=== PATIENT | male | born 1960 | race Caucasian/White ===

== ENCOUNTER 2020-09-12 23:33 | Inpatient (IN) | payer OTHER ==
[2020-09-13 00:18] VITALS: BMI 24.5
[2020-09-13] MEDS ORDERED: MENTHOL/PHENOL 1 EACH UD MM PRN (00:58)
[2020-09-13] MEDS ORDERED: ACETAMINOPHEN 325 MG TABLET (FP) PO PRN (00:58)
[2020-09-13] MEDS ORDERED: chlordiazePOXIDE HCL 25 MG CAPSULE PO PRN (00:58)
[2020-09-13] MEDS ORDERED: MAGNESIUM HYDROX 2400MG/30ML ORAL SUSPENSION 30 ML CUP PO PRN (00:58)
[2020-09-13] MEDS ORDERED: BISMUTH SUBSALICYLATE 524 MG/30 ML UD PO PRN (00:58)
[2020-09-13] MEDS ORDERED: MAG HYDROX/AL HYDROX/SIMETH 30 ML UNIT-DOSE CUP PO PRN (00:58)
[2020-09-13] MEDS ORDERED: NICOTINE POLACRILEX 2 MG GUM BUC PRN (00:58)
[2020-09-13] MEDS ORDERED: ONDANSETRON *ODT* 4 MG TABLET SL PRN (00:58)
[2020-09-13] MEDS ORDERED: MAGNESIUM CITRATE 300 ML BOTTLE PO PRN (00:58)
[2020-09-13] MEDS ORDERED: IBUPROFEN 400 MG TABLET (FP) PO PRN (00:58)
[2020-09-13] MEDS: IBUPROFEN 600 MG TABLET (FP) PO SCH ×4 (02:24→19:20)
[2020-09-13] MEDS: chlordiazePOXIDE HCL 25 MG CAPSULE PO SCH ×4 (06:10→22:11)
[2020-09-13] MEDS: PRENATAL VITAMINS W/ FOLIC ACID TABLET (FP) PO SCH (10:38)
[2020-09-13] MEDS: NICOTINE 14 MG/24 HOURS TOPICAL PATCH TD SCH (10:39)
[2020-09-13] MEDS: ACETAMINOPHEN 325 MG TABLET (FP) PO PRN (10:39)
[2020-09-13] MEDS ORDERED: COLLOIDAL OATMEAL 1 BAR EACH TP ONE (12:00)
[2020-09-13 12:01] LABS: HEMOGLOBIN 11.5 GM/dL (11.7-16.9); MCH 28.5 pg (25.7-33.7); MCHC 31.8 g/dl (32.0-35.9); MEAN CELL VOLUME 89.5 fl (80-96); MEAN PLT VOLUME 8.4 fl (7.5-11.1); PLATELET COUNT 249 K/MM3 (134-434); RBC 4.03 M/mm3 (4.00-5.60); RDW 20.7 % (11.9-15.9); WHITE BLOOD COUNT 5.8 K/mm3 (4.0-10.0)
[2020-09-13 12:05] LABS: POTASSIUM 3.8 mmol/L (3.5-5.1)
[2020-09-13 12:12] LABS: ALBUMIN 3.6 g/dl (3.4-5.0); BLOOD UREA NITROGEN 32.2 mg/dL (7-18); CALCIUM 9.2 mg/dL (8.5-10.1)
[2020-09-13 12:16] LABS: BILIRUBIN,TOTAL 0.5 mg/dL (0.2-1); TOT PROT 7.2 g/dl (6.4-8.2)
[2020-09-13] MEDS ORDERED: MELATONIN 5 MG TABLETS PO SCH (22:00)
[2020-09-13] MEDS: THIAMINE HCL 100 MG TABLET (FP) PO SCH (22:10)
[2020-09-13] MEDS: SUVOREXANT 10 MG TABLET PO PRN (22:12)
[2020-09-14] MEDS: IBUPROFEN 600 MG TABLET (FP) PO SCH ×4 (01:07→19:46)
[2020-09-14] MEDS: chlordiazePOXIDE HCL 25 MG CAPSULE PO SCH ×4 (06:20→23:01)
[2020-09-14] MEDS: PRENATAL VITAMINS W/ FOLIC ACID TABLET (FP) PO SCH (10:32)
[2020-09-14] MEDS: NICOTINE 14 MG/24 HOURS TOPICAL PATCH TD SCH (10:32)
[2020-09-14] MEDS: CARBAMIDE PEROXIDE 6.5% OTIC 15 ML BOTTLE AU SCH ×2 (13:22→23:01)
[2020-09-14] MEDS: THIAMINE HCL 100 MG TABLET (FP) PO SCH (23:01)
[2020-09-15] MEDS ORDERED: chlordiazePOXIDE HCL 10 MG CAPSULE PO PRN
[2020-09-15] MEDS: chlordiazePOXIDE HCL 10 MG CAPSULE PO SCH ×4 (05:27→22:11)
[2020-09-15] MEDS: IBUPROFEN 600 MG TABLET (FP) PO SCH ×4 (07:13→20:25)
[2020-09-15] MEDS: PRENATAL VITAMINS W/ FOLIC ACID TABLET (FP) PO SCH (10:22)
[2020-09-15] MEDS: CARBAMIDE PEROXIDE 6.5% OTIC 15 ML BOTTLE AU SCH ×2 (10:22→22:11)
[2020-09-15] MEDS: NICOTINE 14 MG/24 HOURS TOPICAL PATCH TD SCH (10:23)
[2020-09-15] MEDS: THIAMINE HCL 100 MG TABLET (FP) PO SCH (22:08)
[2020-09-15] MEDS: SUVOREXANT 10 MG TABLET PO PRN (22:09)
[2020-09-15] MEDS: POLYETHYLENE GLYCOL 3350 119 GM BTL PO SCH ×2 (22:45→23:41)
[2020-09-16] MEDS: METHOCARBAMOL 500 MG TABLET PO PRN ×2 (03:06→14:08)
[2020-09-16] MEDS: chlordiazePOXIDE HCL 10 MG CAPSULE PO SCH ×2 (04:00→18:16)
[2020-09-16] MEDS: PRENATAL VITAMINS W/ FOLIC ACID TABLET (FP) PO SCH (10:47)
[2020-09-16] MEDS: NICOTINE 14 MG/24 HOURS TOPICAL PATCH TD SCH (10:47)
[2020-09-16] MEDS: CARBAMIDE PEROXIDE 6.5% OTIC 15 ML BOTTLE AU SCH ×2 (10:47→21:15)
[2020-09-16] MEDS: ACETAMINOPHEN 325 MG TABLET (FP) PO PRN (14:08)
[2020-09-16] MEDS: THIAMINE HCL 100 MG TABLET (FP) PO SCH (21:14)
[2020-09-16] MEDS: SUVOREXANT 10 MG TABLET PO PRN (21:14)
[2020-09-17 02:13] VITALS: BP 118/68; PULSE 67; TEMP 97.7
[2020-09-17] MEDS ORDERED: chlordiazePOXIDE HCL 10 MG CAPSULE PO ONE (05:00)
== END 2020-09-17 02:47 | disposition left against medical advice (07) | DRG 770 ==
LOC: YASAS 23:33 → Y3N 09-13 01:36
PROVIDERS: ADMIT Allergy & Immunology; ATTEND Allergy & Immunology
PROC: HZ2ZZZZ Detoxification Services for Substance Abuse Treatment (ICD-10-PCS; principal; 2020-09-13)
DX: F10.230 Alcohol dependence with withdrawal, uncomplicated (principal); F14.20 Cocaine dependence, uncomplicated; F17.210 Nicotine dependence, cigarettes, uncomplicated; F19.24 Other psychoactive substance dependence with psychoactive substance-induced mood disorder; F41.9 Anxiety disorder, unspecified; F32.9 Major depressive disorder, single episode, unspecified; G47.00 Insomnia, unspecified; H61.23 Impacted cerumen, bilateral; Z56.0 Unemployment, unspecified; Z59.0 Homelessness
CPT/HCPCS: 36415; 80053; 85027; 86780; 93005; 93010; C9803; U0003

== ENCOUNTER 2020-12-25 18:45 | Inpatient (IN) | payer OTHER ==
[2020-12-25] MEDS ORDERED: MENTHOL/PHENOL 1 EACH UD MM PRN (22:33)
[2020-12-25] MEDS ORDERED: chlordiazePOXIDE HCL 25 MG CAPSULE PO PRN (22:33)
[2020-12-25] MEDS ORDERED: ONDANSETRON *ODT* 4 MG TABLET SL PRN (22:33)
[2020-12-25] MEDS ORDERED: MAG HYDROX/AL HYDROX/SIMETH 30 ML UNIT-DOSE CUP PO PRN (22:33)
[2020-12-25] MEDS ORDERED: MAGNESIUM CITRATE 300 ML BOTTLE PO PRN (22:33)
[2020-12-25] MEDS ORDERED: BISMUTH SUBSALICYLATE 524 MG/30 ML UD PO PRN (22:33)
[2020-12-25] MEDS ORDERED: ACETAMINOPHEN 325 MG TABLET (FP) PO PRN ×2 (22:33)
[2020-12-25] MEDS ORDERED: MAGNESIUM HYDROX 2400MG/30ML ORAL SUSPENSION 30 ML CUP PO PRN (22:33)
[2020-12-25] MEDS ORDERED: cloNIDine HCL 0.1 MG TABLET PO ONE (23:12)
[2020-12-25 23:39] VITALS: BMI 25.7
[2020-12-25] MEDS ORDERED: cloNIDine HCL 0.1 MG TABLET ONE (23:54)
[2020-12-25] MEDS ORDERED: chlordiazePOXIDE HCL 25 MG CAPSULE ONE (23:54)
[2020-12-25] MEDS: chlordiazePOXIDE HCL 25 MG CAPSULE PO SCH (23:57)
[2020-12-26] MEDS: chlordiazePOXIDE HCL 25 MG CAPSULE PO SCH ×4 (05:50→22:15)
[2020-12-26] MEDS ORDERED: hydrOXYzine PAMOATE 25 MG CAPSULE (FP) PO SCH (06:00)
[2020-12-26] MEDS ORDERED: hydrOXYzine PAMOATE 25 MG CAPSULE (FP) PO PRN (09:05)
[2020-12-26 10:02] LABS: CALCIUM 8.5 mg/dL (8.5-10.1)
[2020-12-26 10:03] LABS: ALBUMIN 3.4 g/dl (3.4-5.0); BLOOD UREA NITROGEN 12.6 mg/dL (7-18)
[2020-12-26 10:06] LABS: CREATININE 0.9 mg/dL (0.55-1.3)
[2020-12-26 10:08] LABS: BILIRUBIN,TOTAL 0.7 mg/dL (0.2-1); TOT PROT 6.6 g/dl (6.4-8.2)
[2020-12-26 10:22] LABS: HEMATOCRIT 37.8 % (35.4-49); HEMOGLOBIN 12.6 GM/dL (11.7-16.9); MCHC 33.4 g/dl (32.0-35.9); MEAN CELL VOLUME 95.8 fl (80-96); MEAN PLT VOLUME 7.9 fl (7.5-11.1); PLATELET COUNT 158 K/MM3 (134-434); RBC 3.94 M/mm3 (4.00-5.60); RDW 17.7 % (11.9-15.9); WHITE BLOOD COUNT 5.3 K/mm3 (4.0-10.0)
[2020-12-26] MEDS: PRENATAL VITAMINS W/ FOLIC ACID TABLET (FP) PO SCH (10:24)
[2020-12-26] MEDS: LISINOPRIL 10 MG TABLET PO SCH (10:24)
[2020-12-26] MEDS: HYDROCHLOROTHIAZIDE 12.5 MG CAPSULE (FP) PO SCH (10:24)
[2020-12-26 13:18] LABS: HIV INTERPRETATION NEGATIVE (NEGATIVE)
[2020-12-26] MEDS ORDERED: COLLOIDAL OATMEAL 1 BAR EACH TP PRN (13:55)
[2020-12-26] MEDS: IBUPROFEN 400 MG TABLET (FP) PO PRN (16:49)
[2020-12-26] MEDS: METHOCARBAMOL 500 MG TABLET PO PRN (16:49)
[2020-12-26] MEDS: THIAMINE HCL 100 MG TABLET (FP) PO SCH (22:15)
[2020-12-26] MEDS: MELATONIN 5 MG TABLETS PO SCH (22:15)
[2020-12-27] MEDS: chlordiazePOXIDE HCL 25 MG CAPSULE PO SCH ×4 (05:18→22:08)
[2020-12-27] MEDS: METHOCARBAMOL 500 MG TABLET PO PRN ×2 (05:20→17:14)
[2020-12-27] MEDS: IBUPROFEN 400 MG TABLET (FP) PO PRN (05:20)
[2020-12-27] MEDS: LISINOPRIL 10 MG TABLET PO SCH (10:02)
[2020-12-27] MEDS: HYDROCHLOROTHIAZIDE 12.5 MG CAPSULE (FP) PO SCH (10:02)
[2020-12-27] MEDS: PRENATAL VITAMINS W/ FOLIC ACID TABLET (FP) PO SCH (10:02)
[2020-12-27] MEDS: THIAMINE HCL 100 MG TABLET (FP) PO SCH (22:08)
[2020-12-27] MEDS: MELATONIN 5 MG TABLETS PO SCH (22:08)
[2020-12-28] MEDS ORDERED: chlordiazePOXIDE HCL 10 MG CAPSULE PO PRN
[2020-12-28] MEDS: IBUPROFEN 400 MG TABLET (FP) PO PRN (05:34)
[2020-12-28] MEDS: chlordiazePOXIDE HCL 10 MG CAPSULE PO SCH ×3 (05:36→17:40)
[2020-12-28 06:07] LABS: SARS-CoV-2 NAA Not Detected (Not Detected)
[2020-12-28] MEDS: HYDROCHLOROTHIAZIDE 12.5 MG CAPSULE (FP) PO SCH (10:55)
[2020-12-28] MEDS: PRENATAL VITAMINS W/ FOLIC ACID TABLET (FP) PO SCH (10:55)
[2020-12-28] MEDS: LISINOPRIL 10 MG TABLET PO SCH (10:55)
[2020-12-28] MEDS: METHOCARBAMOL 500 MG TABLET PO PRN (10:55)
[2020-12-28] MEDS ORDERED: IBUPROFEN 400 MG TABLET (FP) PO PRN (10:59)
[2020-12-28 17:29] VITALS: BP 149/82; PULSE 65; TEMP 96.9
[2020-12-29] MEDS ORDERED: chlordiazePOXIDE HCL 10 MG CAPSULE PO SCH (05:00)
[2020-12-30] MEDS ORDERED: chlordiazePOXIDE HCL 10 MG CAPSULE PO ONE (05:00)
== END 2020-12-28 19:27 | disposition left against medical advice (07) | DRG 770 ==
LOC: YASAS 18:45 → Y3N 23:18
PROVIDERS: ADMIT Allergy & Immunology; ATTEND Allergy & Immunology
PROC: HZ2ZZZZ Detoxification Services for Substance Abuse Treatment (ICD-10-PCS; principal; 2020-12-25)
DX: F10.230 Alcohol dependence with withdrawal, uncomplicated (principal); F14.20 Cocaine dependence, uncomplicated; F17.210 Nicotine dependence, cigarettes, uncomplicated; F19.24 Other psychoactive substance dependence with psychoactive substance-induced mood disorder; F41.9 Anxiety disorder, unspecified; F32.9 Major depressive disorder, single episode, unspecified; I10 Essential (primary) hypertension; M54.5 Low back pain; Z56.0 Unemployment, unspecified; Z59.0 Homelessness
CPT/HCPCS: 36415; 80053; 85027; 86780; 87389; 93005; 93010; C9803; J0735; U0003; U0005

== ENCOUNTER 2021-02-12 19:28 | Emergency (ER) | payer OTHER ==
[2021-02-12 19:46] VITALS: BP 119/68; PULSE 84; TEMP 98.8; BMI 30.5
[2021-02-12] MEDS ORDERED: KETOROLAC TROMETHAMINE 15 MG/ML VIAL ONE (20:19)
[2021-02-12] MEDS: KETOROLAC TROMETHAMINE 30 MG/1 ML VIAL IM ONE ×2 (20:26→20:27)
== END 2021-02-12 20:30 | disposition left against medical advice (07) ==
LOC: JER 19:28
DX: R07.81 Pleurodynia (principal)
CPT/HCPCS: 99281-25

== ENCOUNTER 2021-02-13 12:09 | Inpatient (IN) | payer OTHER ==
[2021-02-13 12:43] VITALS: BMI 25.2
[2021-02-13] MEDS ORDERED: MAG HYDROX/AL HYDROX/SIMETH 30 ML UNIT-DOSE CUP PO PRN (13:17)
[2021-02-13] MEDS ORDERED: ACETAMINOPHEN 325 MG TABLET (FP) PO PRN ×2 (13:17)
[2021-02-13] MEDS ORDERED: BISMUTH SUBSALICYLATE 524 MG/30 ML PO PRN (13:17)
[2021-02-13] MEDS ORDERED: MENTHOL/PHENOL 1 EACH UD MM PRN (13:17)
[2021-02-13] MEDS ORDERED: NICOTINE POLACRILEX 2 MG GUM BUC PRN (13:17)
[2021-02-13] MEDS ORDERED: ONDANSETRON *ODT* 4 MG TABLET SL PRN (13:17)
[2021-02-13] MEDS ORDERED: LORazepam 1 MG TABLET PO PRN (13:17)
[2021-02-13] MEDS ORDERED: MAGNESIUM HYDROX 2400MG/30ML ORAL SUSPENSION 30 ML CUP PO PRN (13:17)
[2021-02-13] MEDS ORDERED: MAGNESIUM CITRATE 300 ML BOTTLE PO PRN (13:17)
[2021-02-13] MEDS ORDERED: COLLOIDAL OATMEAL 1 BAR EACH TP PRN (13:20)
[2021-02-13] MEDS: NICOTINE 14 MG/24 HOURS TOPICAL PATCH TD SCH (13:58)
[2021-02-13] MEDS: hydrOXYzine PAMOATE 25 MG CAPSULE (FP) PO SCH ×3 (14:00→22:30)
[2021-02-13] MEDS: PRENATAL VITAMINS W/ FOLIC ACID TABLET (FP) PO SCH (14:00)
[2021-02-13 16:04] LABS: HEMATOCRIT 37.4 % (35.4-49); HEMOGLOBIN 12.2 GM/dL (11.7-16.9); MCH 31.4 pg (25.7-33.7); MCHC 32.7 g/dl (32.0-35.9); MEAN PLT VOLUME 7.6 fl (7.5-11.1); PLATELET COUNT 192 10^3/uL (134-434); RDW 17.4 % (11.9-15.9); WHITE BLOOD COUNT 6.2 K/mm3 (4.0-10.0)
[2021-02-13 16:07] LABS: BLOOD UREA NITROGEN 17.6 mg/dL (7-18); CALCIUM 8.3 mg/dL (8.5-10.1)
[2021-02-13 16:08] LABS: ALBUMIN 3.6 g/dl (3.4-5.0)
[2021-02-13 16:11] LABS: CREATININE 0.9 mg/dL (0.55-1.3)
[2021-02-13 16:12] LABS: TOT PROT 6.9 g/dl (6.4-8.2)
[2021-02-13 17:02] LABS: HIV INTERPRETATION NEGATIVE (NEGATIVE)
[2021-02-13] MEDS: LORazepam 2 MG TABLET PO SCH ×2 (17:37→22:30)
[2021-02-13 17:56] LABS: SYPHILIS W/ RPR CONF NON-REACTIVE (NONREACTIVE)
[2021-02-13] MEDS ORDERED: MELATONIN 5 MG TABLETS PO SCH (22:00)
[2021-02-13] MEDS ORDERED: THIAMINE HCL 100 MG TABLET (FP) PO SCH (22:00)
[2021-02-13] MEDS: IBUPROFEN 400 MG TABLET (FP) PO PRN (22:32)
[2021-02-13] MEDS: METHOCARBAMOL 500 MG TABLET PO PRN (22:32)
[2021-02-14] MEDS: hydrOXYzine PAMOATE 25 MG CAPSULE (FP) PO SCH ×3 (05:44→13:47)
[2021-02-14] MEDS: METHOCARBAMOL 500 MG TABLET PO PRN (05:44)
[2021-02-14] MEDS: LORazepam 2 MG TABLET PO SCH ×2 (05:48→10:15)
[2021-02-14 08:51] VITALS: BP 124/79; PULSE 64; TEMP 96.8
[2021-02-14] MEDS: PRENATAL VITAMINS W/ FOLIC ACID TABLET (FP) PO SCH (10:15)
[2021-02-14] MEDS: IBUPROFEN 400 MG TABLET (FP) PO PRN (10:18)
[2021-02-14] MEDS: NICOTINE 14 MG/24 HOURS TOPICAL PATCH TD SCH (10:19)
[2021-02-14] MEDS ORDERED: MELATONIN 5 MG TABLETS PO PRN (10:59)
[2021-02-14] MEDS ORDERED: COVID-19 VAC,AD26(JANSSEN)/PF 0.5 ML IM ONE (12:00)
[2021-02-15] MEDS ORDERED: LORazepam 1 MG TABLET PO SCH (05:00)
[2021-02-16] MEDS ORDERED: LORazepam 0.5 MG TABLET PO PRN
[2021-02-16] MEDS ORDERED: LORazepam 0.5 MG TABLET PO SCH (05:00)
[2021-02-17] MEDS ORDERED: LORazepam 0.5 MG TABLET PO ONE (05:00)
== END 2021-02-14 13:35 | disposition left against medical advice (07) | DRG 770 ==
LOC: YASAS 12:09 → Y3N 13:18
PROVIDERS: ADMIT Allergy & Immunology; ATTEND Allergy & Immunology
PROC: HZ2ZZZZ Detoxification Services for Substance Abuse Treatment (ICD-10-PCS; principal; 2021-02-13)
DX: F10.10 Alcohol abuse, uncomplicated (principal); F14.10 Cocaine abuse, uncomplicated; F17.210 Nicotine dependence, cigarettes, uncomplicated; F19.280 Other psychoactive substance dependence with psychoactive substance-induced anxiety disorder; F19.282 Other psychoactive substance dependence with psychoactive substance-induced sleep disorder; F19.24 Other psychoactive substance dependence with psychoactive substance-induced mood disorder; F41.8 Other specified anxiety disorders; F32.9 Major depressive disorder, single episode, unspecified; G47.00 Insomnia, unspecified; I10 Essential (primary) hypertension; R42 Dizziness and giddiness; R07.81 Pleurodynia; Y04.2XXD Assault by strike against or bumped into by another person, subsequent encounter
CPT/HCPCS: 36415; 80053; 85027; 86780; 87389; C9803; U0003; U0005

== ENCOUNTER 2021-02-14 11:04 | Emergency (ER) | payer OTHER ==
[2021-02-14] MEDS ORDERED: ACETAMINOPHEN 325 MG TABLET (FP) PO ONE (11:38)
[2021-02-14] MEDS ORDERED: ACETAMINOPHEN 325 MG TABLET (FP) ONE (11:44)
[2021-02-14 11:52] VITALS: BP 134/64; PULSE 62; TEMP 97.8; BMI 23.5
== END 2021-02-14 12:41 | disposition left against medical advice (07) ==
LOC: JER 11:04
DX: S09.90XA Unspecified injury of head, initial encounter (principal); R07.81 Pleurodynia
CPT/HCPCS: 71101-TC-LT-FY; 73610-TC-RT-FY; 99285-25

== ENCOUNTER 2021-03-06 21:39 | Inpatient (IN) | payer OTHER ==
[2021-03-07 01:18] VITALS: BMI 24.9
[2021-03-07] MEDS ORDERED: ACETAMINOPHEN 325 MG TABLET (FP) PO PRN (09:57)
[2021-03-07] MEDS ORDERED: NICOTINE POLACRILEX 2 MG GUM BC PRN (09:57)
[2021-03-07] MEDS ORDERED: MAG HYDROX/AL HYDROX/SIMETH 30 ML UNIT-DOSE CUP PO PRN (09:57)
[2021-03-07] MEDS ORDERED: P-EPHED 60MG/TRIPROLIDI 2.5MG TABLET PO PRN (09:57)
[2021-03-07] MEDS ORDERED: LOPERAMIDE HCL 2 MG CAPSULE PO PRN (09:57)
[2021-03-07] MEDS ORDERED: guaiFENesin 200 MG/10 ML 10 ML UNIT-DOSE CUPS PO PRN (09:57)
[2021-03-07] MEDS ORDERED: MAGNESIUM CITRATE 300 ML BOTTLE PO PRN (09:57)
[2021-03-07] MEDS ORDERED: MAGNESIUM HYDROX 2400MG/30ML ORAL SUSPENSION 30 ML CUP PO PRN (09:57)
[2021-03-07] MEDS ORDERED: NICOTINE 7 MG/24 HOURS TOPICAL PATCH TD SCH (10:00)
[2021-03-07] MEDS ORDERED: PATIENT'S OWN MEDICATION (NON-FORMULARY) (Lisinopril/Hydrochlorothiazide [Lisinopril-Hctz PO SCH (10:00)
[2021-03-07] MEDS: NICOTINE 14 MG/24 HOURS TOPICAL PATCH TD SCH (13:05)
[2021-03-07] MEDS: hydrOXYzine PAMOATE 25 MG CAPSULE (FP) PO SCH ×4 (13:05→21:31)
[2021-03-07] MEDS: PRENATAL VITAMINS W/ FOLIC ACID TABLET (FP) PO SCH (13:05)
[2021-03-07] MEDS: LISINOPRIL 10 MG TABLET PO SCH (13:06)
[2021-03-07] MEDS: HYDROCHLOROTHIAZIDE 12.5 MG CAPSULE (FP) PO SCH (13:06)
[2021-03-07 13:08] VITALS: TEMP 97.1
[2021-03-07] MEDS: IBUPROFEN 400 MG TABLET (FP) PO PRN ×2 (13:11→18:15)
[2021-03-07] MEDS ORDERED: COLLOIDAL OATMEAL 1 BAR EACH TP PRN (13:19)
[2021-03-07] MEDS ORDERED: METHOCARBAMOL 500 MG TABLET PO PRN (15:44)
[2021-03-07 18:21] LABS: HEMATOCRIT 38.3 % (35.4-49); HEMOGLOBIN 12.8 GM/dL (11.7-16.9); MCH 31.8 pg (25.7-33.7); MCHC 33.4 g/dl (32.0-35.9); MEAN CELL VOLUME 95.2 fl (80-96); MEAN PLT VOLUME 8.8 fl (7.5-11.1); PLATELET COUNT 103 10^3/uL (134-434); RBC 4.03 M/mm3 (4.00-5.60); RDW 17.4 % (11.9-15.9); WHITE BLOOD COUNT 5.6 K/mm3 (4.0-10.0)
[2021-03-07 18:24] LABS: ALBUMIN 3.3 g/dl (3.4-5.0); CALCIUM 8.6 mg/dL (8.5-10.1)
[2021-03-07 18:27] LABS: CREATININE 0.8 mg/dL (0.55-1.3)
[2021-03-07 18:29] LABS: BILIRUBIN,TOTAL 0.8 mg/dL (0.2-1); TOT PROT 6.7 g/dl (6.4-8.2)
[2021-03-07] MEDS ORDERED: BACITRACIN 0.9 GM PACKET ONE (21:30)
[2021-03-07] MEDS: GABAPENTIN 100 MG CAPSULE PO SCH (21:31)
[2021-03-07] MEDS: THIAMINE HCL 100 MG TABLET (FP) PO SCH (21:31)
[2021-03-07] MEDS: traZODone HCL 50 MG TABLET (FP) PO SCH (21:31)
[2021-03-07] MEDS: BACITRACIN 0.9 GM PACKET TP SCH (21:32)
[2021-03-07] MEDS ORDERED: BACITRACIN 15 GM TUBE TOPICAL OINTMENT TP SCH (22:00)
[2021-03-07] MEDS: NYSTATIN POWDER 100,000 UNITS/GM - 15 GM TOPICAL POWDER TP SCH (23:00)
[2021-03-08] MEDS: hydrOXYzine PAMOATE 25 MG CAPSULE (FP) PO SCH ×2 (06:19→09:23)
[2021-03-08] MEDS: GABAPENTIN 100 MG CAPSULE PO SCH ×3 (06:19→21:18)
[2021-03-08] MEDS: BACITRACIN 0.9 GM PACKET TP SCH ×2 (09:23→21:18)
[2021-03-08] MEDS: ESCITALOPRAM OXALATE 10 MG TABLET PO SCH (09:23)
[2021-03-08] MEDS: HYDROCHLOROTHIAZIDE 12.5 MG CAPSULE (FP) PO SCH (09:23)
[2021-03-08] MEDS: PRENATAL VITAMINS W/ FOLIC ACID TABLET (FP) PO SCH (09:24)
[2021-03-08] MEDS: NYSTATIN POWDER 100,000 UNITS/GM - 15 GM TOPICAL POWDER TP SCH ×2 (09:24→23:27)
[2021-03-08] MEDS: NICOTINE 14 MG/24 HOURS TOPICAL PATCH TD SCH (09:25)
[2021-03-08] MEDS: LISINOPRIL 10 MG TABLET PO SCH (09:26)
[2021-03-08] MEDS: IBUPROFEN 400 MG TABLET (FP) PO PRN ×2 (09:27→20:15)
[2021-03-08] MEDS ORDERED: hydrOXYzine PAMOATE 25 MG CAPSULE (FP) PO PRN (12:19)
[2021-03-08] MEDS ORDERED: PT OWN MED DRAWER 7, Y5N ONE (20:03)
[2021-03-08] MEDS: THIAMINE HCL 100 MG TABLET (FP) PO SCH (21:18)
[2021-03-08] MEDS: traZODone HCL 50 MG TABLET (FP) PO SCH (21:18)
[2021-03-08] MEDS: MELATONIN 5 MG TABLETS PO SCH ×2 (21:18→21:20)
[2021-03-09] MEDS: GABAPENTIN 100 MG CAPSULE PO SCH ×2 (06:30→13:39)
[2021-03-09 09:06] VITALS: BP 118/68; PULSE 73
[2021-03-09] MEDS: ESCITALOPRAM OXALATE 10 MG TABLET PO SCH (10:01)
[2021-03-09] MEDS: HYDROCHLOROTHIAZIDE 12.5 MG CAPSULE (FP) PO SCH (10:01)
[2021-03-09] MEDS: PRENATAL VITAMINS W/ FOLIC ACID TABLET (FP) PO SCH (10:01)
[2021-03-09] MEDS: LISINOPRIL 10 MG TABLET PO SCH (10:01)
[2021-03-09] MEDS: BACITRACIN 0.9 GM PACKET TP SCH (10:01)
[2021-03-09] MEDS: IBUPROFEN 400 MG TABLET (FP) PO PRN (10:03)
[2021-03-09] MEDS: NYSTATIN POWDER 100,000 UNITS/GM - 15 GM TOPICAL POWDER TP SCH (10:05)
[2021-03-09] MEDS: NICOTINE 14 MG/24 HOURS TOPICAL PATCH TD SCH (10:05)
== END 2021-03-09 14:40 | disposition home or self-care (01) | DRG 772 ==
LOC: YASAS 21:39 → Y3E 03-07 11:58
PROVIDERS: ADMIT Allergy & Immunology; ATTEND Allergy & Immunology
PROC: HZ42ZZZ Group Counseling for Substance Abuse Treatment, Cognitive-Behavioral (ICD-10-PCS; principal; 2021-03-07)
DX: F10.20 Alcohol dependence, uncomplicated (principal); F14.20 Cocaine dependence, uncomplicated; F17.210 Nicotine dependence, cigarettes, uncomplicated; F31.9 Bipolar disorder, unspecified; F20.9 Schizophrenia, unspecified; F41.9 Anxiety disorder, unspecified; F19.280 Other psychoactive substance dependence with psychoactive substance-induced anxiety disorder; F19.282 Other psychoactive substance dependence with psychoactive substance-induced sleep disorder; F19.24 Other psychoactive substance dependence with psychoactive substance-induced mood disorder; I10 Essential (primary) hypertension; G47.00 Insomnia, unspecified; K76.0 Fatty (change of) liver, not elsewhere classified; M54.5 Low back pain; G89.29 Other chronic pain; Z87.820 Personal history of traumatic brain injury
CPT/HCPCS: 36415; 80053; 85027; 86780; C9803; U0003; U0005

== ENCOUNTER 2021-04-14 12:33 | Inpatient (IN) | payer OTHER ==
[2021-04-14 13:39] VITALS: BMI 25.8
[2021-04-14] MEDS ORDERED: NICOTINE 10 MG CARTRIDGE (INHALER) IH PRN (15:14)
[2021-04-14] MEDS ORDERED: ONDANSETRON *ODT* 4 MG TABLET SL PRN (15:14)
[2021-04-14] MEDS ORDERED: MAGNESIUM CITRATE 300 ML BOTTLE PO PRN (15:14)
[2021-04-14] MEDS ORDERED: MAG HYDROX/AL HYDROX/SIMETH 30 ML UNIT-DOSE CUP PO PRN (15:14)
[2021-04-14] MEDS ORDERED: BISMUTH SUBSALICYLATE 524 MG/30 ML PO PRN (15:14)
[2021-04-14] MEDS ORDERED: LORazepam 1 MG TABLET PO PRN (15:14)
[2021-04-14] MEDS ORDERED: ACETAMINOPHEN 325 MG TABLET (FP) PO PRN ×2 (15:14)
[2021-04-14] MEDS ORDERED: MENTHOL/PHENOL 1 EACH UD MM PRN (15:14)
[2021-04-14] MEDS ORDERED: MAGNESIUM HYDROX 2400MG/30ML ORAL SUSPENSION 30 ML CUP PO PRN (15:14)
[2021-04-14] MEDS ORDERED: NICOTINE POLACRILEX 2 MG GUM BUC PRN (15:14)
[2021-04-14] MEDS ORDERED: METHOCARBAMOL 500 MG TABLET PO PRN (15:14)
[2021-04-14] MEDS ORDERED: IBUPROFEN 400 MG TABLET (FP) PO PRN (15:14)
[2021-04-14] MEDS: hydrOXYzine PAMOATE 25 MG CAPSULE (FP) PO SCH ×2 (17:54→22:35)
[2021-04-14] MEDS: LORazepam 2 MG TABLET PO SCH ×2 (17:55→22:35)
[2021-04-14] MEDS: MELATONIN 5 MG TABLETS PO SCH (22:35)
[2021-04-14] MEDS: THIAMINE HCL 100 MG TABLET (FP) PO SCH (22:35)
[2021-04-15] MEDS: hydrOXYzine PAMOATE 25 MG CAPSULE (FP) PO SCH ×5 (06:02→22:07)
[2021-04-15] MEDS: LORazepam 2 MG TABLET PO SCH ×4 (06:03→22:08)
[2021-04-15] MEDS ORDERED: PATIENT'S OWN MEDICATION (NON-FORMULARY) (Lisinopril/Hydrochlorothiazide [Lisinopril-Hctz PO SCH (10:00)
[2021-04-15] MEDS: LISINOPRIL 10 MG TABLET PO SCH (10:14)
[2021-04-15] MEDS: PRENATAL VITAMINS W/ FOLIC ACID TABLET (FP) PO SCH (10:14)
[2021-04-15] MEDS: NICOTINE 21 MG/24 HOURS TOPICAL PATCH TD SCH (10:17)
[2021-04-15] MEDS: HYDROCHLOROTHIAZIDE 12.5 MG CAPSULE (FP) PO SCH (12:53)
[2021-04-15] MEDS: THIAMINE HCL 100 MG TABLET (FP) PO SCH (22:07)
[2021-04-15] MEDS: MELATONIN 5 MG TABLETS PO SCH (22:07)
[2021-04-16] MEDS: LORazepam 1 MG TABLET PO SCH ×2 (06:20→10:52)
[2021-04-16] MEDS: hydrOXYzine PAMOATE 25 MG CAPSULE (FP) PO SCH ×2 (06:22→10:51)
[2021-04-16 08:47] VITALS: BP 106/70; PULSE 73; TEMP 97.5
[2021-04-16] MEDS ORDERED: BACITRACIN 0.9 GM PACKET TP ONE (10:00)
[2021-04-16] MEDS: PRENATAL VITAMINS W/ FOLIC ACID TABLET (FP) PO SCH (10:51)
[2021-04-16] MEDS: LISINOPRIL 10 MG TABLET PO SCH (10:51)
[2021-04-16] MEDS: NICOTINE 21 MG/24 HOURS TOPICAL PATCH TD SCH (10:51)
[2021-04-16] MEDS: HYDROCHLOROTHIAZIDE 12.5 MG CAPSULE (FP) PO SCH (11:20)
[2021-04-16 14:03] LABS: HEMATOCRIT 37.3 % (35.4-49); HEMOGLOBIN 12.7 GM/dL (11.7-16.9); MCH 34.3 pg (25.7-33.7); MEAN CELL VOLUME 101.1 fl (80-96); MEAN PLT VOLUME 8.5 fl (7.5-11.1); PLATELET COUNT 174 10^3/uL (134-434); RBC 3.69 M/mm3 (4.00-5.60); RDW 19.9 % (11.9-15.9); WHITE BLOOD COUNT 3.9 K/mm3 (4.0-10.0)
[2021-04-16 14:13] LABS: ALBUMIN 3.1 g/dl (3.4-5.0); CALCIUM 8.5 mg/dL (8.5-10.1)
[2021-04-16 14:17] LABS: CREATININE 0.6 mg/dL (0.55-1.3)
[2021-04-16 14:19] LABS: BILIRUBIN,TOTAL 0.4 mg/dL (0.2-1); TOT PROT 6.1 g/dl (6.4-8.2)
[2021-04-17] MEDS ORDERED: LORazepam 0.5 MG TABLET PO PRN
[2021-04-17] MEDS ORDERED: LORazepam 0.5 MG TABLET PO SCH (05:00)
[2021-04-18] MEDS ORDERED: LORazepam 0.5 MG TABLET PO ONE (05:00)
== END 2021-04-16 10:57 | disposition left against medical advice (07) | DRG 770 ==
LOC: YASAS 12:33 → Y6N 16:58
PROVIDERS: ADMIT Allergy & Immunology; ATTEND Allergy & Immunology
PROC: HZ2ZZZZ Detoxification Services for Substance Abuse Treatment (ICD-10-PCS; principal; 2021-04-14)
DX: F10.230 Alcohol dependence with withdrawal, uncomplicated (principal); F14.20 Cocaine dependence, uncomplicated; F17.210 Nicotine dependence, cigarettes, uncomplicated; F19.24 Other psychoactive substance dependence with psychoactive substance-induced mood disorder; I10 Essential (primary) hypertension; M54.5 Low back pain; G89.29 Other chronic pain; Z86.59 Personal history of other mental and behavioral disorders; Z91.81 History of falling; Z87.828 Personal history of other (healed) physical injury and trauma; Z59.0 Homelessness; Z56.0 Unemployment, unspecified
CPT/HCPCS: 36415; 80053; 85027; 86780; C9803; U0003; U0005

== ENCOUNTER 2021-06-30 14:08 | Inpatient (IN) | payer OTHER ==
[2021-06-30 15:41] VITALS: BMI 27.6
[2021-06-30] MEDS ORDERED: IBUPROFEN 400 MG TABLET (FP) PO PRN (17:08)
[2021-06-30] MEDS ORDERED: MAGNESIUM HYDROX 2400MG/30ML ORAL SUSPENSION 30 ML CUP PO PRN (17:08)
[2021-06-30] MEDS ORDERED: ACETAMINOPHEN 325 MG TABLET (FP) PO PRN ×2 (17:08)
[2021-06-30] MEDS ORDERED: MAGNESIUM CITRATE 300 ML BOTTLE PO PRN (17:08)
[2021-06-30] MEDS ORDERED: MAG HYDROX/AL HYDROX/SIMETH 30 ML UNIT-DOSE CUP PO PRN (17:08)
[2021-06-30] MEDS ORDERED: MENTHOL/PHENOL 1 EACH UD MM PRN (17:08)
[2021-06-30] MEDS ORDERED: hydrOXYzine PAMOATE 25 MG CAPSULE (FP) PO PRN (17:08)
[2021-06-30] MEDS ORDERED: BISMUTH SUBSALICYLATE 524 MG/30 ML PO PRN (17:08)
[2021-06-30] MEDS ORDERED: METHOCARBAMOL 500 MG TABLET PO PRN (17:08)
[2021-06-30] MEDS ORDERED: ONDANSETRON *ODT* 4 MG TABLET SL PRN (17:08)
[2021-06-30] MEDS ORDERED: NICOTINE POLACRILEX 2 MG GUM BUC PRN (17:09)
[2021-06-30] MEDS: diazePAM 5 MG TABLET PO SCH ×2 (17:59→22:36)
[2021-06-30] MEDS: MELATONIN 5 MG TABLETS PO SCH (22:36)
[2021-06-30] MEDS: THIAMINE HCL 100 MG TABLET (FP) PO SCH (22:36)
[2021-07-01] MEDS: diazePAM 5 MG TABLET PO SCH ×4 (05:45→22:25)
[2021-07-01] MEDS ORDERED: PATIENT'S OWN MEDICATION (NON-FORMULARY) (Lisinopril/Hydrochlorothiazide [Lisinopril-Hctz PO SCH (10:00)
[2021-07-01] MEDS: PRENATAL VITAMINS W/ FOLIC ACID TABLET (FP) PO SCH (10:19)
[2021-07-01] MEDS: HYDROCHLOROTHIAZIDE 25 MG TABLET (FP) PO SCH (10:19)
[2021-07-01] MEDS: LISINOPRIL 10 MG TABLET PO SCH (10:19)
[2021-07-01] MEDS: guaiFENesin 600 MG TABLET.ER (FP) PO SCH ×2 (14:46→22:24)
[2021-07-01] MEDS: SODIUM CHLORIDE NASAL SPRAY 44 ML BOTTLE NS SCH ×2 (14:46→22:25)
[2021-07-01] MEDS: BACITRACIN 15 GM TUBE TOPICAL OINTMENT TP SCH ×2 (14:48→22:24)
[2021-07-01] MEDS: diazePAM 5 MG TABLET PO PRN (17:31)
[2021-07-01] MEDS: MELATONIN 5 MG TABLETS PO SCH (22:24)
[2021-07-01] MEDS: THIAMINE HCL 100 MG TABLET (FP) PO SCH (22:24)
[2021-07-02] MEDS: diazePAM 5 MG TABLET PO SCH ×3 (05:53→22:13)
[2021-07-02] MEDS: SODIUM CHLORIDE NASAL SPRAY 44 ML BOTTLE NS SCH ×3 (05:55→22:14)
[2021-07-02] MEDS: LISINOPRIL 10 MG TABLET PO SCH (10:49)
[2021-07-02] MEDS: PRENATAL VITAMINS W/ FOLIC ACID TABLET (FP) PO SCH (10:49)
[2021-07-02] MEDS: diazePAM 5 MG TABLET PO PRN (10:49)
[2021-07-02] MEDS: guaiFENesin 600 MG TABLET.ER (FP) PO SCH ×2 (10:49→22:13)
[2021-07-02] MEDS: HYDROCHLOROTHIAZIDE 25 MG TABLET (FP) PO SCH (10:50)
[2021-07-02] MEDS: BACITRACIN 15 GM TUBE TOPICAL OINTMENT TP SCH ×2 (10:50→22:16)
[2021-07-02] MEDS: LIDOCAINE VISCOUS 2% ORAL/TOP 15 ML UNIT-DOSE CUP MM SCH ×2 (11:49→17:53)
[2021-07-02 12:16] LABS: HEMATOCRIT 40.2 % (35.4-49); HEMOGLOBIN 13.7 GM/dL (11.7-16.9); MCH 33.3 pg (25.7-33.7); MEAN CELL VOLUME 97.9 fl (80-96); MEAN PLT VOLUME 8.9 fl (7.5-11.1); PLATELET COUNT 99 10^3/uL (134-434); RBC 4.11 M/mm3 (4.00-5.60); RDW 15.5 % (11.9-15.9); WHITE BLOOD COUNT 6.1 K/mm3 (4.0-10.0)
[2021-07-02 12:29] LABS: ALBUMIN 3.1 g/dl (3.4-5.0); BLOOD UREA NITROGEN 13.4 mg/dL (7-18); CALCIUM 9.2 mg/dL (8.5-10.1)
[2021-07-02 12:32] LABS: CREATININE 0.7 mg/dL (0.55-1.3)
[2021-07-02 12:34] LABS: BILIRUBIN,TOTAL 0.6 mg/dL (0.2-1); TOT PROT 6.5 g/dl (6.4-8.2)
[2021-07-02 21:23] VITALS: PULSE 75
[2021-07-02] MEDS: THIAMINE HCL 100 MG TABLET (FP) PO SCH (22:13)
[2021-07-02] MEDS: MELATONIN 5 MG TABLETS PO SCH (22:14)
[2021-07-03] MEDS: LIDOCAINE VISCOUS 2% ORAL/TOP 15 ML UNIT-DOSE CUP MM SCH ×2 (00:14→05:56)
[2021-07-03] MEDS: SODIUM CHLORIDE NASAL SPRAY 44 ML BOTTLE NS SCH (05:55)
[2021-07-03] MEDS ORDERED: diazePAM 5 MG TABLET PO SCH (06:00)
[2021-07-03 06:21] VITALS: BP 155/91; TEMP 97.2
[2021-07-04] MEDS ORDERED: diazePAM 5 MG TABLET PO ONE (06:00)
== END 2021-07-03 08:52 | disposition home or self-care (01) | DRG 774 ==
LOC: YASAS 14:08 → Y6N 17:19
PROVIDERS: ADMIT Allergy & Immunology; ATTEND Allergy & Immunology
PROC: HZ2ZZZZ Detoxification Services for Substance Abuse Treatment (ICD-10-PCS; principal; 2021-06-30)
DX: F10.230 Alcohol dependence with withdrawal, uncomplicated (principal); F14.20 Cocaine dependence, uncomplicated; F17.213 Nicotine dependence, cigarettes, with withdrawal; F19.282 Other psychoactive substance dependence with psychoactive substance-induced sleep disorder; F19.280 Other psychoactive substance dependence with psychoactive substance-induced anxiety disorder; F19.24 Other psychoactive substance dependence with psychoactive substance-induced mood disorder; F39 Unspecified mood [affective] disorder; I10 Essential (primary) hypertension; M19.90 Unspecified osteoarthritis, unspecified site; Z87.820 Personal history of traumatic brain injury; Z87.01 Personal history of pneumonia (recurrent); Z56.0 Unemployment, unspecified; Z59.00 Homelessness unspecified
CPT/HCPCS: 36415; 80053; 85027; 86780; 93005; 93010; C9803; U0003; U0005

== ENCOUNTER 2021-08-16 08:51 | Inpatient (IN) | payer OTHER ==
[2021-08-16] MEDS ORDERED: MAGNESIUM HYDROX 2400MG/30ML ORAL SUSPENSION 30 ML CUP PO PRN (10:13)
[2021-08-16] MEDS ORDERED: MAGNESIUM CITRATE 300 ML BOTTLE PO PRN (10:13)
[2021-08-16] MEDS ORDERED: BISMUTH SUBSALICYLATE 262 MG/15 ML BTL PO PRN (10:13)
[2021-08-16] MEDS ORDERED: MENTHOL/PHENOL 1 EACH UD MM PRN (10:13)
[2021-08-16] MEDS ORDERED: NICOTINE 10 MG CARTRIDGE (INHALER) IH PRN (10:13)
[2021-08-16] MEDS ORDERED: ACETAMINOPHEN 325 MG TABLET (FP) PO PRN ×2 (10:13)
[2021-08-16] MEDS ORDERED: LORazepam 1 MG TABLET PO PRN (10:13)
[2021-08-16] MEDS ORDERED: MAG HYDROX/AL HYDROX/SIMETH 30 ML UNIT-DOSE CUP PO PRN (10:13)
[2021-08-16] MEDS ORDERED: ONDANSETRON *ODT* 4 MG TABLET SL PRN (10:13)
[2021-08-16 10:22] VITALS: BMI 26.2
[2021-08-16] MEDS: METHOCARBAMOL 500 MG TABLET PO PRN (11:25)
[2021-08-16] MEDS: hydrOXYzine PAMOATE 25 MG CAPSULE (FP) PO SCH ×3 (14:35→22:56)
[2021-08-16 17:17] LABS: HEMATOCRIT 41.8 % (35.4-49); HEMOGLOBIN 13.6 GM/dL (11.7-16.9); MCH 32.2 pg (25.7-33.7); MCHC 32.6 g/dl (32.0-35.9); MEAN CELL VOLUME 98.9 fl (80-96); MEAN PLT VOLUME 8.6 fl (7.5-11.1); PLATELET COUNT 251 10^3/uL (134-434); RBC 4.23 M/mm3 (4.00-5.60); RDW 15.1 % (11.9-15.9); WHITE BLOOD COUNT 5.1 K/mm3 (4.0-10.0)
[2021-08-16] MEDS: LORazepam 2 MG TABLET PO SCH ×2 (17:22→22:56)
[2021-08-16] MEDS: IBUPROFEN 400 MG TABLET (FP) PO PRN ×2 (17:25→23:01)
[2021-08-16 17:58] LABS: ALBUMIN 3.7 g/dl (3.4-5.0); BLOOD UREA NITROGEN 17.6 mg/dL (7-18); CALCIUM 8.9 mg/dL (8.5-10.1)
[2021-08-16 18:01] LABS: CREATININE 0.8 mg/dL (0.55-1.3)
[2021-08-16 18:03] LABS: BILIRUBIN,TOTAL 0.7 mg/dL (0.2-1); TOT PROT 7.5 g/dl (6.4-8.2)
[2021-08-16] MEDS ORDERED: MELATONIN 5 MG TABLETS PO SCH (22:00)
[2021-08-16] MEDS ORDERED: SUVOREXANT 10 MG TABLET PO PRN (22:00)
[2021-08-16] MEDS ORDERED: THIAMINE HCL 100 MG TABLET (FP) PO SCH (22:00)
[2021-08-17] MEDS: LORazepam 2 MG TABLET PO SCH ×2 (05:25→10:46)
[2021-08-17] MEDS: hydrOXYzine PAMOATE 25 MG CAPSULE (FP) PO SCH ×2 (05:25→10:46)
[2021-08-17] MEDS ORDERED: LISINOPRIL 10 MG TABLET PO SCH (10:00)
[2021-08-17] MEDS ORDERED: PRENATAL VITAMINS W/ FOLIC ACID TABLET (FP) PO SCH (10:00)
[2021-08-17] MEDS: METHOCARBAMOL 500 MG TABLET PO PRN (10:46)
[2021-08-17 13:22] VITALS: BP 138/73; PULSE 65; TEMP 98
[2021-08-18] MEDS ORDERED: LORazepam 1 MG TABLET PO SCH (05:00)
[2021-08-19] MEDS ORDERED: LORazepam 0.5 MG TABLET PO PRN
[2021-08-19] MEDS ORDERED: LORazepam 0.5 MG TABLET PO SCH (05:00)
[2021-08-20] MEDS ORDERED: LORazepam 0.5 MG TABLET PO ONE (05:00)
== END 2021-08-17 14:55 | disposition home or self-care (01) | DRG 774 ==
LOC: YASAS 08:51 → Y6N 10:38
PROVIDERS: ADMIT Allergy & Immunology; ATTEND Allergy & Immunology
PROC: HZ2ZZZZ Detoxification Services for Substance Abuse Treatment (ICD-10-PCS; principal; 2021-08-16)
DX: F10.20 Alcohol dependence, uncomplicated (principal); F14.20 Cocaine dependence, uncomplicated; F17.210 Nicotine dependence, cigarettes, uncomplicated; F20.9 Schizophrenia, unspecified; F31.9 Bipolar disorder, unspecified; F19.282 Other psychoactive substance dependence with psychoactive substance-induced sleep disorder; F19.24 Other psychoactive substance dependence with psychoactive substance-induced mood disorder; F39 Unspecified mood [affective] disorder; K76.0 Fatty (change of) liver, not elsewhere classified; M19.90 Unspecified osteoarthritis, unspecified site; M54.50 Low back pain, unspecified; G89.29 Other chronic pain; Z59.00 Homelessness unspecified; Z56.0 Unemployment, unspecified
CPT/HCPCS: 36415; 80053; 85027; 86780; C9803; U0003; U0005

== ENCOUNTER 2021-09-13 18:42 | Inpatient (IN) | payer OTHER ==
[2021-09-13 20:20] VITALS: BMI 30.8
[2021-09-13] MEDS ORDERED: ACETAMINOPHEN 325 MG TABLET (FP) PO PRN ×2 (21:55)
[2021-09-13] MEDS ORDERED: DICYCLOMINE HCL 10 MG CAPSULE PO PRN (21:55)
[2021-09-13] MEDS ORDERED: P-EPHED 60MG/TRIPROLIDI 2.5MG TABLET PO PRN (21:55)
[2021-09-13] MEDS ORDERED: BISMUTH SUBSALICYLATE 524 MG/30 ML PO PRN (21:55)
[2021-09-13] MEDS ORDERED: MAGNESIUM CITRATE 300 ML BOTTLE PO PRN (21:55)
[2021-09-13] MEDS ORDERED: MENTHOL/PHENOL 1 EACH UD MM PRN (21:55)
[2021-09-13] MEDS ORDERED: guaiFENesin 200 MG/10 ML 10 ML UNIT-DOSE CUPS PO PRN (21:55)
[2021-09-13] MEDS ORDERED: MAG HYDROX/AL HYDROX/SIMETH 30 ML UNIT-DOSE CUP PO PRN (21:55)
[2021-09-13] MEDS ORDERED: NICOTINE POLACRILEX 2 MG GUM BUC PRN (21:55)
[2021-09-13] MEDS ORDERED: LORazepam 1 MG TABLET PO PRN (21:55)
[2021-09-13] MEDS ORDERED: ONDANSETRON *ODT* 4 MG TABLET SL PRN (21:55)
[2021-09-13] MEDS ORDERED: MAGNESIUM HYDROX 2400MG/30ML ORAL SUSPENSION 30 ML CUP PO PRN (21:55)
[2021-09-13] MEDS ORDERED: IBUPROFEN 400 MG TABLET (FP) PO PRN (21:55)
[2021-09-13] MEDS ORDERED: MELATONIN 5 MG TABLETS PO SCH (22:00)
[2021-09-13] MEDS: LACTULOSE 20 GM/30 ML UDC (FOR ORAL USE ONLY) PO SCH (23:53)
[2021-09-13] MEDS: METHOCARBAMOL 500 MG TABLET PO PRN (23:53)
[2021-09-13] MEDS: hydrOXYzine PAMOATE 25 MG CAPSULE (FP) PO PRN (23:53)
[2021-09-13] MEDS: LORazepam 2 MG TABLET PO SCH (23:53)
[2021-09-13] MEDS: THIAMINE HCL 100 MG TABLET (FP) PO SCH (23:53)
[2021-09-14] MEDS: LORazepam 2 MG TABLET PO SCH ×4 (05:30→22:07)
[2021-09-14 10:29] LABS: HEMATOCRIT 40.3 % (35.4-49); HEMOGLOBIN 12.9 GM/dL (11.7-16.9); MCH 31.8 pg (25.7-33.7); MEAN CELL VOLUME 99.3 fl (80-96); MEAN PLT VOLUME 8.3 fl (7.5-11.1); PLATELET COUNT 228 10^3/uL (134-434); RBC 4.06 M/mm3 (4.00-5.60); RDW 14.5 % (11.9-15.9); WHITE BLOOD COUNT 5.4 K/mm3 (4.0-10.0)
[2021-09-14] MEDS ORDERED: IBUPROFEN 400 MG TABLET (FP) PO PRN (10:37)
[2021-09-14 10:46] LABS: ALBUMIN 3.3 g/dl (3.4-5.0); CALCIUM 8.8 mg/dL (8.5-10.1)
[2021-09-14 10:47] LABS: BLOOD UREA NITROGEN 21.8 mg/dL (7-18)
[2021-09-14 10:49] LABS: CREATININE 0.8 mg/dL (0.55-1.3)
[2021-09-14 10:50] LABS: TOT PROT 6.5 g/dl (6.4-8.2)
[2021-09-14 10:51] LABS: BILIRUBIN,TOTAL 0.2 mg/dL (0.2-1)
[2021-09-14] MEDS: PRENATAL VITAMINS W/ FOLIC ACID TABLET (FP) PO SCH (11:38)
[2021-09-14] MEDS: LISINOPRIL 10 MG TABLET PO SCH (11:38)
[2021-09-14] MEDS: NICOTINE 14 MG/24 HOURS TOPICAL PATCH TD SCH (11:38)
[2021-09-14] MEDS: LACTULOSE 20 GM/30 ML UDC (FOR ORAL USE ONLY) PO SCH (12:23)
[2021-09-14] MEDS: METHOCARBAMOL 500 MG TABLET PO PRN (19:40)
[2021-09-14] MEDS: hydrOXYzine PAMOATE 25 MG CAPSULE (FP) PO PRN (19:40)
[2021-09-14] MEDS ORDERED: SUVOREXANT 10 MG TABLET PO PRN (22:00)
[2021-09-14] MEDS: THIAMINE HCL 100 MG TABLET (FP) PO SCH (22:07)
[2021-09-15 06:29] VITALS: TEMP 97.5
[2021-09-15] MEDS: LORazepam 1 MG TABLET PO SCH ×2 (06:55→11:09)
[2021-09-15 10:30] VITALS: BP 117/79; PULSE 69
[2021-09-15] MEDS: LACTULOSE 20 GM/30 ML UDC (FOR ORAL USE ONLY) PO SCH (11:08)
[2021-09-15] MEDS: NICOTINE 14 MG/24 HOURS TOPICAL PATCH TD SCH (11:08)
[2021-09-15] MEDS: PRENATAL VITAMINS W/ FOLIC ACID TABLET (FP) PO SCH (11:08)
[2021-09-15] MEDS: LISINOPRIL 10 MG TABLET PO SCH (11:09)
[2021-09-16] MEDS ORDERED: LORazepam 0.5 MG TABLET PO PRN
[2021-09-16] MEDS ORDERED: LORazepam 0.5 MG TABLET PO SCH (05:00)
[2021-09-17] MEDS ORDERED: LORazepam 0.5 MG TABLET PO ONE (05:00)
== END 2021-09-15 10:30 | disposition left against medical advice (07) | DRG 770 ==
LOC: YASAS 18:42 → Y6N 23:08
PROVIDERS: ADMIT Allergy & Immunology; ATTEND Allergy & Immunology
PROC: HZ2ZZZZ Detoxification Services for Substance Abuse Treatment (ICD-10-PCS; principal; 2021-09-13)
DX: F10.230 Alcohol dependence with withdrawal, uncomplicated (principal); F14.20 Cocaine dependence, uncomplicated; F17.210 Nicotine dependence, cigarettes, uncomplicated; F31.9 Bipolar disorder, unspecified; F19.282 Other psychoactive substance dependence with psychoactive substance-induced sleep disorder; F19.24 Other psychoactive substance dependence with psychoactive substance-induced mood disorder; I10 Essential (primary) hypertension; K76.0 Fatty (change of) liver, not elsewhere classified; K59.00 Constipation, unspecified; Z87.19 Personal history of other diseases of the digestive system; Z87.820 Personal history of traumatic brain injury; Z59.00 Homelessness unspecified
CPT/HCPCS: 36415; 80053; 85027; 86780; C9803; U0003; U0005

== ENCOUNTER 2022-03-10 22:03 | Inpatient (IN) | payer OTHER ==
[2022-03-10 22:41] VITALS: BP 115/64; PULSE 82; RESP 18; TEMP 97.5; BMI 24.5
[2022-03-10] MEDS ORDERED: BISMUTH SUBSALICYLATE 524 MG/30 ML PO PRN (23:15)
[2022-03-10] MEDS ORDERED: METHOCARBAMOL 500 MG TABLET PO PRN (23:15)
[2022-03-10] MEDS ORDERED: NICOTINE POLACRILEX 2 MG GUM BUC PRN (23:15)
[2022-03-10] MEDS ORDERED: P-EPHED 60MG/TRIPROLIDI 2.5MG TABLET PO PRN (23:15)
[2022-03-10] MEDS ORDERED: BENZOCAINE/MENTHOL (CHLORASEPTIC ) LOZENGE MM PRN (23:15)
[2022-03-10] MEDS ORDERED: ONDANSETRON *ODT* 4 MG TABLET SL PRN (23:15)
[2022-03-10] MEDS ORDERED: ACETAMINOPHEN 325 MG TABLET (FP) PO PRN ×2 (23:15)
[2022-03-10] MEDS ORDERED: guaiFENesin 200 MG/10 ML 10 ML UNIT-DOSE CUPS PO PRN (23:15)
[2022-03-10] MEDS ORDERED: hydrOXYzine PAMOATE 25 MG CAPSULE (FP) PO PRN (23:15)
[2022-03-10] MEDS ORDERED: MAGNESIUM CITRATE 300 ML BOTTLE PO PRN (23:15)
[2022-03-10] MEDS ORDERED: DICYCLOMINE HCL 10 MG CAPSULE PO PRN (23:15)
[2022-03-10] MEDS ORDERED: IBUPROFEN 400 MG TABLET (FP) PO PRN (23:15)
[2022-03-10] MEDS ORDERED: MAG HYDROX/AL HYDROX/SIMETH 30 ML UNIT-DOSE CUP PO PRN (23:15)
[2022-03-10] MEDS ORDERED: MAGNESIUM HYDROX 2400MG/30ML ORAL SUSPENSION 30 ML CUP PO PRN (23:15)
[2022-03-10] MEDS ORDERED: LOPERAMIDE HCL 2 MG CAPSULE PO PRN (23:15)
[2022-03-10] MEDS ORDERED: IBUPROFEN 600 MG TABLET (FP) PO PRN (23:15)
[2022-03-11] MEDS ORDERED: NICOTINE 14 MG/24 HOURS TOPICAL PATCH TD SCH (10:00)
[2022-03-11] MEDS ORDERED: PRENATAL VITAMINS W/ FOLIC ACID TABLET (FP) PO SCH (10:00)
[2022-03-11] MEDS ORDERED: THIAMINE HCL 100 MG TABLET (FP) PO SCH (22:00)
[2022-03-11] MEDS ORDERED: MELATONIN 5 MG TABLETS PO SCH (22:00)
== END 2022-03-11 00:20 | disposition left against medical advice (07) | DRG 770 ==
LOC: YASAS 22:03 → Y3N 23:24
PROVIDERS: ADMIT Allergy & Immunology; ATTEND Surgery
PROC: HZ2ZZZZ Detoxification Services for Substance Abuse Treatment (ICD-10-PCS; principal; 2022-03-10)
DX: F10.230 Alcohol dependence with withdrawal, uncomplicated (principal); F14.20 Cocaine dependence, uncomplicated; F17.210 Nicotine dependence, cigarettes, uncomplicated; F19.282 Other psychoactive substance dependence with psychoactive substance-induced sleep disorder; F31.9 Bipolar disorder, unspecified; F19.24 Other psychoactive substance dependence with psychoactive substance-induced mood disorder; F41.9 Anxiety disorder, unspecified; F10.220 Alcohol dependence with intoxication, uncomplicated; I10 Essential (primary) hypertension; Z87.820 Personal history of traumatic brain injury; Z59.00 Homelessness unspecified
CPT/HCPCS: C9803-CS; U0003; U0005

== ENCOUNTER 2022-03-20 23:07 | Inpatient (IN) | payer OTHER ==
[2022-03-21 03:20] VITALS: BMI 25.7
[2022-03-21] MEDS ORDERED: MAG HYDROX/AL HYDROX/SIMETH 30 ML UNIT-DOSE CUP PO PRN (08:46)
[2022-03-21] MEDS ORDERED: IBUPROFEN 600 MG TABLET (FP) PO PRN (08:46)
[2022-03-21] MEDS ORDERED: NICOTINE 10 MG CARTRIDGE (INHALER) IH PRN (08:46)
[2022-03-21] MEDS ORDERED: BISMUTH SUBSALICYLATE 262 MG/15 ML BTL PO PRN (08:46)
[2022-03-21] MEDS ORDERED: DICYCLOMINE HCL 10 MG CAPSULE PO PRN (08:46)
[2022-03-21] MEDS ORDERED: MAGNESIUM CITRATE 300 ML BOTTLE PO PRN (08:46)
[2022-03-21] MEDS ORDERED: ACETAMINOPHEN 325 MG TABLET (FP) PO PRN ×2 (08:46)
[2022-03-21] MEDS ORDERED: ONDANSETRON *ODT* 4 MG TABLET SL PRN (08:46)
[2022-03-21] MEDS ORDERED: LOPERAMIDE HCL 2 MG CAPSULE PO PRN (08:46)
[2022-03-21] MEDS ORDERED: MAGNESIUM HYDROX 2400MG/30ML ORAL SUSPENSION 30 ML CUP PO PRN (08:46)
[2022-03-21] MEDS ORDERED: BENZOCAINE/MENTHOL (CHLORASEPTIC ) LOZENGE MM PRN (08:46)
[2022-03-21] MEDS ORDERED: LORazepam 1 MG TABLET PO PRN (08:46)
[2022-03-21] MEDS: hydrOXYzine PAMOATE 25 MG CAPSULE (FP) PO SCH ×4 (12:07→22:58)
[2022-03-21] MEDS: LORazepam 2 MG TABLET PO SCH ×3 (12:08→22:59)
[2022-03-21] MEDS: IBUPROFEN 400 MG TABLET (FP) PO PRN ×2 (12:11→23:03)
[2022-03-21] MEDS: PRENATAL VITAMINS W/ FOLIC ACID TABLET (FP) PO SCH (13:54)
[2022-03-21] MEDS: NICOTINE 14 MG/24 HOURS TOPICAL PATCH TD SCH (13:54)
[2022-03-21 14:52] LABS: HEMOGLOBIN 13.4 GM/dL (11.7-16.9); MCH 34.5 pg (25.7-33.7); MCHC 33.5 g/dl (32.0-35.9); MEAN CELL VOLUME 103.2 fl (80-96); MEAN PLT VOLUME 8.9 fl (7.5-11.1); PLATELET COUNT 99 10^3/uL (134-434); RBC 3.88 M/mm3 (4.00-5.60); RDW 13.5 % (11.9-15.9); WHITE BLOOD COUNT 5.7 K/mm3 (4.0-10.0)
[2022-03-21 15:19] LABS: BILIRUBIN,TOTAL 1.9 mg/dL (0.2-1)
[2022-03-21 15:22] LABS: BLOOD UREA NITROGEN 9.4 mg/dL (7-18); CALCIUM 8.8 mg/dL (8.5-10.1)
[2022-03-21 15:25] LABS: CREATININE 0.6 mg/dL (0.55-1.3)
[2022-03-21 15:27] LABS: TOT PROT 6.6 g/dl (6.4-8.2)
[2022-03-21] MEDS ORDERED: MELATONIN 5 MG TABLETS PO SCH (22:00)
[2022-03-21] MEDS: THIAMINE HCL 100 MG TABLET (FP) PO SCH (22:59)
[2022-03-21] MEDS: METHOCARBAMOL 500 MG TABLET PO PRN (23:00)
[2022-03-22] MEDS: LORazepam 2 MG TABLET PO SCH ×4 (06:05→22:54)
[2022-03-22] MEDS: METHOCARBAMOL 500 MG TABLET PO PRN ×2 (06:05→17:49)
[2022-03-22] MEDS: hydrOXYzine PAMOATE 25 MG CAPSULE (FP) PO SCH ×5 (06:05→22:53)
[2022-03-22] MEDS: NICOTINE 14 MG/24 HOURS TOPICAL PATCH TD SCH (11:12)
[2022-03-22] MEDS: PRENATAL VITAMINS W/ FOLIC ACID TABLET (FP) PO SCH (11:12)
[2022-03-22] MEDS ORDERED: LISINOPRIL 10 MG TABLET PO SCH (11:30)
[2022-03-22] MEDS ORDERED: HYDROCHLOROTHIAZIDE 12.5 MG CAPSULE (FP) PO SCH (15:00)
[2022-03-22] MEDS: IBUPROFEN 400 MG TABLET (FP) PO PRN (17:49)
[2022-03-22 21:30] VITALS: BP 112/68; PULSE 79; RESP 18; TEMP 96.6
[2022-03-22] MEDS ORDERED: SUVOREXANT 10 MG TABLET PO PRN (22:00)
[2022-03-22] MEDS: THIAMINE HCL 100 MG TABLET (FP) PO SCH (22:53)
[2022-03-23] MEDS ORDERED: LORazepam 1 MG TABLET PO SCH (05:00)
[2022-03-24] MEDS ORDERED: LORazepam 0.5 MG TABLET PO PRN
[2022-03-24] MEDS ORDERED: LORazepam 0.5 MG TABLET PO SCH (05:00)
[2022-03-25] MEDS ORDERED: LORazepam 0.5 MG TABLET PO ONE (05:00)
== END 2022-03-22 20:40 | disposition left against medical advice (07) | DRG 770 ==
LOC: YASAS 23:07 → Y3N 03-21 08:57
PROVIDERS: ADMIT Allergy & Immunology; ATTEND Surgery
PROC: HZ2ZZZZ Detoxification Services for Substance Abuse Treatment (ICD-10-PCS; principal; 2022-03-21)
DX: F10.230 Alcohol dependence with withdrawal, uncomplicated (principal); F10.24 Alcohol dependence with alcohol-induced mood disorder; F10.282 Alcohol dependence with alcohol-induced sleep disorder; F14.20 Cocaine dependence, uncomplicated; F17.210 Nicotine dependence, cigarettes, uncomplicated; F39 Unspecified mood [affective] disorder; F20.9 Schizophrenia, unspecified; I10 Essential (primary) hypertension; K76.0 Fatty (change of) liver, not elsewhere classified; M19.90 Unspecified osteoarthritis, unspecified site; M54.59 Other low back pain; G89.29 Other chronic pain; G47.00 Insomnia, unspecified; Z28.310 Unvaccinated for COVID-19; Z86.59 Personal history of other mental and behavioral disorders; Z87.820 Personal history of traumatic brain injury; Z56.0 Unemployment, unspecified; Z59.00 Homelessness unspecified
CPT/HCPCS: 36415; 80053; 82962; 85027; 86780; 93005; 93010; C9803-CS; U0003; U0005

== ENCOUNTER 2022-03-26 14:10 | Inpatient (IN) | payer OTHER ==
[2022-03-26 14:45] VITALS: BMI 24.3
[2022-03-26] MEDS ORDERED: BISMUTH SUBSALICYLATE 524 MG/30 ML PO PRN (16:23)
[2022-03-26] MEDS ORDERED: ONDANSETRON *ODT* 4 MG TABLET SL PRN (16:23)
[2022-03-26] MEDS ORDERED: BENZOCAINE/MENTHOL (CHLORASEPTIC ) LOZENGE MM PRN (16:23)
[2022-03-26] MEDS ORDERED: ACETAMINOPHEN 325 MG TABLET (FP) PO PRN ×3 (16:23→16:35)
[2022-03-26] MEDS ORDERED: MAG HYDROX/AL HYDROX/SIMETH 30 ML UNIT-DOSE CUP PO PRN (16:23)
[2022-03-26] MEDS ORDERED: IBUPROFEN 400 MG TABLET (FP) PO PRN (16:23)
[2022-03-26] MEDS ORDERED: MAGNESIUM HYDROX 2400MG/30ML ORAL SUSPENSION 30 ML CUP PO PRN (16:23)
[2022-03-26] MEDS ORDERED: METHOCARBAMOL 500 MG TABLET PO PRN (16:23)
[2022-03-26] MEDS ORDERED: LORazepam 1 MG TABLET PO PRN (16:23)
[2022-03-26] MEDS ORDERED: LOPERAMIDE HCL 2 MG CAPSULE PO PRN (16:23)
[2022-03-26] MEDS ORDERED: MAGNESIUM CITRATE 300 ML BOTTLE PO PRN (16:23)
[2022-03-26] MEDS ORDERED: NICOTINE 10 MG CARTRIDGE (INHALER) IH PRN (16:23)
[2022-03-26] MEDS ORDERED: DICYCLOMINE HCL 10 MG CAPSULE PO PRN (16:23)
[2022-03-26] MEDS ORDERED: IBUPROFEN 600 MG TABLET (FP) PO PRN (16:23)
[2022-03-26] MEDS ORDERED: PRENATAL VITAMINS W/ FOLIC ACID TABLET (FP) PO SCH (16:30)
[2022-03-26 17:43] VITALS: RESP 17; TEMP 97.7
[2022-03-26] MEDS ORDERED: hydrOXYzine PAMOATE 25 MG CAPSULE (FP) PO SCH (18:00)
[2022-03-26 21:20] VITALS: BP 116/66; PULSE 84
[2022-03-26] MEDS ORDERED: THIAMINE HCL 100 MG TABLET (FP) PO SCH (22:00)
[2022-03-26] MEDS ORDERED: MELATONIN 5 MG TABLETS PO SCH (22:00)
[2022-03-26] MEDS ORDERED: LORazepam 2 MG TABLET PO SCH (23:00)
[2022-03-27] MEDS ORDERED: HYDROCHLOROTHIAZIDE 12.5 MG CAPSULE (FP) PO SCH (10:00)
[2022-03-27] MEDS ORDERED: LISINOPRIL 10 MG TABLET PO SCH (10:00)
[2022-03-28] MEDS ORDERED: LORazepam 1 MG TABLET PO SCH (05:00)
[2022-03-29] MEDS ORDERED: LORazepam 0.5 MG TABLET PO PRN
[2022-03-29] MEDS ORDERED: LORazepam 0.5 MG TABLET PO SCH (05:00)
[2022-03-30] MEDS ORDERED: LORazepam 0.5 MG TABLET PO ONE (05:00)
== END 2022-03-26 23:20 | disposition left against medical advice (07) | DRG 770 ==
LOC: YASAS 14:10 → SUATTDRO 14:10 → Y6N 15:25
PROVIDERS: ADMIT Allergy & Immunology; ATTEND Surgery
PROC: HZ2ZZZZ Detoxification Services for Substance Abuse Treatment (ICD-10-PCS; principal; 2022-03-26)
DX: F10.230 Alcohol dependence with withdrawal, uncomplicated (principal); F14.20 Cocaine dependence, uncomplicated; F17.210 Nicotine dependence, cigarettes, uncomplicated; F31.9 Bipolar disorder, unspecified; F39 Unspecified mood [affective] disorder; F20.9 Schizophrenia, unspecified; F19.24 Other psychoactive substance dependence with psychoactive substance-induced mood disorder; F19.282 Other psychoactive substance dependence with psychoactive substance-induced sleep disorder; I10 Essential (primary) hypertension; K59.00 Constipation, unspecified; K76.0 Fatty (change of) liver, not elsewhere classified; M19.90 Unspecified osteoarthritis, unspecified site; G89.29 Other chronic pain; Z87.820 Personal history of traumatic brain injury; Z28.310 Unvaccinated for COVID-19; Z86.69 Personal history of other diseases of the nervous system and sense organs; Z59.00 Homelessness unspecified
CPT/HCPCS: C9803-CS; U0003; U0005

== ENCOUNTER 2022-05-25 13:58 | Inpatient (IN) | payer OTHER ==
[2022-05-25 14:38] VITALS: BMI 31.6
[2022-05-25] MEDS ORDERED: ONDANSETRON *ODT* 4 MG TABLET SL PRN (15:15)
[2022-05-25] MEDS ORDERED: BISMUTH SUBSALICYLATE 524 MG/30 ML PO PRN (15:15)
[2022-05-25] MEDS ORDERED: LOPERAMIDE HCL 2 MG CAPSULE PO PRN (15:15)
[2022-05-25] MEDS ORDERED: NALOXONE HCL (KLOXXADO) 8 MG SPRAY NS PRN (15:15)
[2022-05-25] MEDS ORDERED: ACETAMINOPHEN 325 MG TABLET (FP) PO PRN (15:15)
[2022-05-25] MEDS ORDERED: NICOTINE 10 MG CARTRIDGE (INHALER) IH PRN (15:15)
[2022-05-25] MEDS ORDERED: MAG HYDROX/AL HYDROX/SIMETH 30 ML UNIT-DOSE CUP PO PRN (15:15)
[2022-05-25] MEDS ORDERED: IBUPROFEN 400 MG TABLET (FP) PO PRN (15:15)
[2022-05-25] MEDS ORDERED: DICYCLOMINE HCL 10 MG CAPSULE PO PRN (15:15)
[2022-05-25] MEDS ORDERED: IBUPROFEN 600 MG TABLET (FP) PO PRN (15:15)
[2022-05-25] MEDS ORDERED: METHOCARBAMOL 500 MG TABLET PO PRN (15:15)
[2022-05-25] MEDS ORDERED: MAGNESIUM HYDROX 2400MG/30ML ORAL SUSPENSION 30 ML CUP PO PRN (15:15)
[2022-05-25] MEDS ORDERED: MAGNESIUM CITRATE 300 ML BOTTLE PO PRN (15:15)
[2022-05-25] MEDS ORDERED: BENZOCAINE/MENTHOL (CHLORASEPTIC ) LOZENGE MM PRN (15:15)
[2022-05-25] MEDS: hydrOXYzine PAMOATE 25 MG CAPSULE (FP) PO SCH ×2 (17:54→22:43)
[2022-05-25] MEDS: NICOTINE 14 MG/24 HOURS TOPICAL PATCH TD SCH (17:55)
[2022-05-25] MEDS ORDERED: MELATONIN 5 MG TABLETS PO SCH (22:00)
[2022-05-25] MEDS: COLLOIDAL OATMEAL 1 EACH PACKET TP SCH (22:42)
[2022-05-25] MEDS: MINERAL OIL/PET HY-PHL TOPICAL OINTMENT 454 GM JAR TP SCH (22:43)
[2022-05-25] MEDS: THIAMINE HCL 100 MG TABLET (FP) PO SCH (22:43)
[2022-05-26] MEDS: hydrOXYzine PAMOATE 25 MG CAPSULE (FP) PO SCH ×2 (05:54→10:35)
[2022-05-26] MEDS: PRENATAL VITAMINS W/ FOLIC ACID TABLET (FP) PO SCH (10:33)
[2022-05-26] MEDS: MINERAL OIL/PET HY-PHL TOPICAL OINTMENT 454 GM JAR TP SCH ×2 (10:35→22:51)
[2022-05-26 11:17] LABS: HEMATOCRIT 43.7 % (35.4-49); MCH 33.9 pg (25.7-33.7); MCHC 32.1 g/dl (32.0-35.9); MEAN CELL VOLUME 105.6 fl (80-96); MEAN PLT VOLUME 8.7 fl (7.5-11.1); PLATELET COUNT 213 10^3/uL (134-434); RBC 4.13 M/mm3 (4.00-5.60); RDW 14.5 % (11.9-15.9); WHITE BLOOD COUNT 7.5 K/mm3 (4.0-10.0)
[2022-05-26 11:40] LABS: CALCIUM 9.1 mg/dL (8.5-10.1)
[2022-05-26 11:41] LABS: ALBUMIN 3.2 g/dl (3.4-5.0); BLOOD UREA NITROGEN 14.5 mg/dL (7-18)
[2022-05-26 11:45] LABS: CREATININE 0.7 mg/dL (0.55-1.3)
[2022-05-26 11:46] LABS: BILIRUBIN,TOTAL 0.3 mg/dL (0.2-1); TOT PROT 6.6 g/dl (6.4-8.2)
[2022-05-26] MEDS ORDERED: diazePAM 5 MG TABLET PO PRN (12:31)
[2022-05-26] MEDS: COLLOIDAL OATMEAL 1 EACH PACKET TP SCH (13:03)
[2022-05-26] MEDS: NICOTINE 14 MG/24 HOURS TOPICAL PATCH TD SCH (13:44)
[2022-05-26] MEDS: diazePAM 5 MG TABLET PO SCH ×2 (18:12→22:53)
[2022-05-26] MEDS: THIAMINE HCL 100 MG TABLET (FP) PO SCH (22:51)
[2022-05-26] MEDS: SUVOREXANT 10 MG TABLET PO PRN (22:55)
[2022-05-27] MEDS: diazePAM 5 MG TABLET PO SCH ×2 (07:47→14:04)
[2022-05-27] MEDS: PRENATAL VITAMINS W/ FOLIC ACID TABLET (FP) PO SCH (10:26)
[2022-05-27] MEDS: NICOTINE 14 MG/24 HOURS TOPICAL PATCH TD SCH (10:27)
[2022-05-27] MEDS: MINERAL OIL/PET HY-PHL TOPICAL OINTMENT 454 GM JAR TP SCH ×2 (10:27→23:10)
[2022-05-27] MEDS ORDERED: LORazepam 0.5 MG TABLET PO PRN (14:48)
[2022-05-27] MEDS ORDERED: LORazepam 0.5 MG TABLET PO SCH (22:00)
[2022-05-27] MEDS: THIAMINE HCL 100 MG TABLET (FP) PO SCH (22:16)
[2022-05-27] MEDS: SUVOREXANT 10 MG TABLET PO PRN (22:17)
[2022-05-28] MEDS: LORazepam 0.5 MG TABLET PO SCH ×2 (05:53→18:16)
[2022-05-28] MEDS: ACETAMINOPHEN 325 MG TABLET (FP) PO PRN ×2 (05:53→15:22)
[2022-05-28] MEDS ORDERED: diazePAM 5 MG TABLET PO SCH (06:00)
[2022-05-28] MEDS: NICOTINE 14 MG/24 HOURS TOPICAL PATCH TD SCH (10:53)
[2022-05-28] MEDS: MINERAL OIL/PET HY-PHL TOPICAL OINTMENT 454 GM JAR TP SCH ×2 (10:53→22:09)
[2022-05-28] MEDS: PRENATAL VITAMINS W/ FOLIC ACID TABLET (FP) PO SCH (10:53)
[2022-05-28] MEDS: hydrOXYzine PAMOATE 25 MG CAPSULE (FP) PO PRN ×2 (18:16→22:08)
[2022-05-28] MEDS: THIAMINE HCL 100 MG TABLET (FP) PO SCH (22:08)
[2022-05-28] MEDS: SUVOREXANT 10 MG TABLET PO PRN (22:09)
[2022-05-29] MEDS ORDERED: LORazepam 0.5 MG TABLET PO ONE (06:00)
[2022-05-29] MEDS ORDERED: diazePAM 5 MG TABLET PO ONE (06:00)
[2022-05-29] MEDS: ACETAMINOPHEN 325 MG TABLET (FP) PO PRN (06:30)
[2022-05-29 06:38] VITALS: RESP 18
[2022-05-29 09:37] VITALS: BP 131/69; PULSE 90; TEMP 97.4
== END 2022-05-29 09:31 | disposition home or self-care (01) | DRG 774 ==
LOC: YASAS 13:58 → Y6N 15:21
PROVIDERS: ADMIT Allergy & Immunology; ATTEND Surgery
PROC: HZ2ZZZZ Detoxification Services for Substance Abuse Treatment (ICD-10-PCS; principal; 2022-05-25)
DX: F10.230 Alcohol dependence with withdrawal, uncomplicated (principal); F14.20 Cocaine dependence, uncomplicated; F17.210 Nicotine dependence, cigarettes, uncomplicated; F19.282 Other psychoactive substance dependence with psychoactive substance-induced sleep disorder; F19.24 Other psychoactive substance dependence with psychoactive substance-induced mood disorder; I10 Essential (primary) hypertension; K76.0 Fatty (change of) liver, not elsewhere classified; M54.50 Low back pain, unspecified; G89.29 Other chronic pain; Z87.820 Personal history of traumatic brain injury; Z56.0 Unemployment, unspecified; Z59.00 Homelessness unspecified
CPT/HCPCS: 36415; 80053; 85027; 86780; C9803-CS; U0003; U0005

== ENCOUNTER 2022-07-25 11:00 | Inpatient (IN) | payer OTHER ==
[2022-07-25 13:42] VITALS: BMI 31.3
[2022-07-25] MEDS ORDERED: NICOTINE 21 MG/24 HOURS TOPICAL PATCH TD PRN (14:13)
[2022-07-25] MEDS ORDERED: IBUPROFEN 400 MG TABLET (FP) PO PRN (14:13)
[2022-07-25] MEDS ORDERED: DICYCLOMINE HCL 10 MG CAPSULE PO PRN (14:13)
[2022-07-25] MEDS ORDERED: NICOTINE POLACRILEX 4 MG GUM BUC PRN (14:13)
[2022-07-25] MEDS ORDERED: POLYETHYLENE GLYCOL (HEALTHYLAX) 3350 17 GM PACKET PO PRN (14:13)
[2022-07-25] MEDS ORDERED: ONDANSETRON *ODT* 4 MG TABLET SL PRN (14:13)
[2022-07-25] MEDS ORDERED: LOPERAMIDE HCL 2 MG CAPSULE PO PRN (14:13)
[2022-07-25] MEDS ORDERED: chlordiazePOXIDE HCL 25 MG CAPSULE PO PRN (14:13)
[2022-07-25] MEDS ORDERED: NICOTINE 10 MG CARTRIDGE (INHALER) IH PRN (14:13)
[2022-07-25] MEDS ORDERED: MAG HYDROX/AL HYDROX/SIMETH 30 ML UNIT-DOSE CUP PO PRN (14:13)
[2022-07-25] MEDS ORDERED: hydrOXYzine PAMOATE 25 MG CAPSULE (FP) PO PRN (14:13)
[2022-07-25] MEDS ORDERED: BISMUTH SUBSALICYLATE 262 MG/15 ML BTL PO PRN (14:13)
[2022-07-25] MEDS ORDERED: ACETAMINOPHEN 325 MG TABLET (FP) PO PRN ×2 (14:13)
[2022-07-25] MEDS ORDERED: MAGNESIUM HYDROX 2400MG/30ML ORAL SUSPENSION 30 ML CUP PO PRN (14:13)
[2022-07-25] MEDS ORDERED: BENZOCAINE/MENTHOL (CHLORASEPTIC ) LOZENGE MM PRN (14:13)
[2022-07-25] MEDS: chlordiazePOXIDE HCL 25 MG CAPSULE PO SCH ×2 (17:24→22:29)
[2022-07-25] MEDS: IBUPROFEN 600 MG TABLET (FP) PO PRN (17:28)
[2022-07-25] MEDS: MELATONIN 5 MG TABLETS PO SCH (22:29)
[2022-07-25] MEDS: THIAMINE HCL 100 MG TABLET (FP) PO SCH (22:29)
[2022-07-25] MEDS: BACITRACIN 0.9 GM PACKET TP SCH (22:30)
[2022-07-25] MEDS: METHOCARBAMOL 500 MG TABLET PO PRN (22:33)
[2022-07-26] MEDS: chlordiazePOXIDE HCL 25 MG CAPSULE PO SCH ×4 (06:01→22:37)
[2022-07-26] MEDS ORDERED: MINERAL OIL/PETROLAT/WATER TOPICAL CREAM 113 GM JAR TP SCH (10:00)
[2022-07-26] MEDS ORDERED: PRENATAL VITAMINS W/ FOLIC ACID TABLET (FP) PO SCH (10:00)
[2022-07-26 10:30] LABS: HEMATOCRIT 39.2 % (35.4-49); MCH 32.8 pg (25.7-33.7); MCHC 33.2 g/dl (32.0-35.9); MEAN CELL VOLUME 98.7 fl (80-96); MEAN PLT VOLUME 8.1 fl (7.5-11.1); PLATELET COUNT 200 10^3/uL (134-434); RBC 3.97 M/mm3 (4.00-5.60); RDW 13.1 % (11.9-15.9); WHITE BLOOD COUNT 4.6 K/mm3 (4.0-10.0)
[2022-07-26 10:48] LABS: CALCIUM 8.8 mg/dL (8.5-10.1)
[2022-07-26 10:49] LABS: ALBUMIN 3.6 g/dl (3.4-5.0); BLOOD UREA NITROGEN 23.8 mg/dL (7-18)
[2022-07-26 10:52] LABS: CREATININE 0.8 mg/dL (0.55-1.3)
[2022-07-26 10:53] LABS: BILIRUBIN,TOTAL 0.6 mg/dL (0.2-1); TOT PROT 6.9 g/dl (6.4-8.2)
[2022-07-26] MEDS: BACITRACIN 0.9 GM PACKET TP SCH ×2 (11:04→22:39)
[2022-07-26] MEDS: IBUPROFEN 600 MG TABLET (FP) PO PRN (11:07)
[2022-07-26 21:25] VITALS: TEMP 97.3
[2022-07-26] MEDS: THIAMINE HCL 100 MG TABLET (FP) PO SCH (22:37)
[2022-07-26] MEDS: METHOCARBAMOL 500 MG TABLET PO PRN (22:40)
[2022-07-26] MEDS: MELATONIN 5 MG TABLETS PO SCH (22:42)
[2022-07-27] MEDS ORDERED: chlordiazePOXIDE HCL 25 MG CAPSULE PO SCH (05:00)
[2022-07-27] MEDS: IBUPROFEN 600 MG TABLET (FP) PO PRN (06:00)
[2022-07-27 06:41] VITALS: BP 105/57; PULSE 66; RESP 18
[2022-07-28] MEDS ORDERED: chlordiazePOXIDE HCL 10 MG CAPSULE PO PRN
[2022-07-28] MEDS ORDERED: chlordiazePOXIDE HCL 10 MG CAPSULE PO SCH (05:00)
[2022-07-29] MEDS ORDERED: chlordiazePOXIDE HCL 10 MG CAPSULE PO SCH (05:00)
[2022-07-30] MEDS ORDERED: chlordiazePOXIDE HCL 10 MG CAPSULE PO ONE (05:00)
== END 2022-07-27 07:10 | disposition left against medical advice (07) | DRG 770 ==
LOC: YASAS 11:00 → Y6N 14:19
PROVIDERS: ADMIT Allergy & Immunology; ATTEND Surgery
PROC: HZ2ZZZZ Detoxification Services for Substance Abuse Treatment (ICD-10-PCS; principal; 2022-07-25)
DX: F10.230 Alcohol dependence with withdrawal, uncomplicated (principal); F14.20 Cocaine dependence, uncomplicated; F17.210 Nicotine dependence, cigarettes, uncomplicated; I10 Essential (primary) hypertension; L85.3 Xerosis cutis; Z96.651 Presence of right artificial knee joint; Z99.89 Dependence on other enabling machines and devices
CPT/HCPCS: 36415; 80053; 85027; 86780; C9803-CS; U0003; U0005

== ENCOUNTER 2023-02-22 15:35 | Inpatient (IN) | payer OTHER ==
[2023-02-22 17:24] VITALS: BMI 26.3
[2023-02-23] MEDS ORDERED: guaiFENesin 600 MG TABLET.ER (FP) PO PRN (02:03)
[2023-02-23] MEDS ORDERED: IBUPROFEN 400 MG TABLET (FP) PO PRN (02:03)
[2023-02-23] MEDS ORDERED: DICYCLOMINE HCL 10 MG CAPSULE PO PRN (02:03)
[2023-02-23] MEDS ORDERED: LOPERAMIDE HCL 2 MG CAPSULE PO PRN (02:03)
[2023-02-23] MEDS ORDERED: ACETAMINOPHEN 325 MG TABLET (FP) PO PRN (02:03)
[2023-02-23] MEDS ORDERED: NICOTINE POLACRILEX 2 MG GUM BUC PRN (02:03)
[2023-02-23] MEDS ORDERED: MAG HYDROX/AL HYDROX/SIMETH 30 ML UNIT-DOSE CUP PO PRN (02:03)
[2023-02-23] MEDS ORDERED: ONDANSETRON *ODT* 4 MG TABLET SL PRN (02:03)
[2023-02-23] MEDS ORDERED: IBUPROFEN 600 MG TABLET (FP) PO PRN (02:03)
[2023-02-23] MEDS ORDERED: NALOXONE HCL 0.4 MG/ML VIAL IM PRN (02:03)
[2023-02-23] MEDS ORDERED: BENZOCAINE/MENTHOL (CHLORASEPTIC ) LOZENGE MM PRN (02:03)
[2023-02-23] MEDS ORDERED: BISMUTH SUBSALICYLATE 524 MG/30 ML PO PRN (02:03)
[2023-02-23] MEDS ORDERED: MAGNESIUM HYDROX 2400MG/30ML ORAL SUSPENSION 30 ML CUP PO PRN (02:03)
[2023-02-23] MEDS ORDERED: BENZONATATE 200 MG CAPSULE PO PRN (02:03)
[2023-02-23] MEDS ORDERED: NALOXONE HCL (KLOXXADO) 8 MG SPRAY NS PRN (02:03)
[2023-02-23] MEDS ORDERED: POLYETHYLENE GLYCOL (HEALTHYLAX) 3350 17 GM PACKET PO PRN (02:03)
[2023-02-23 02:14] VITALS: RESP 16
[2023-02-23 07:00] VITALS: BP 110/57; PULSE 67; TEMP 97.2
[2023-02-23] MEDS ORDERED: NICOTINE 14 MG/24 HOURS TOPICAL PATCH TD SCH (10:00)
[2023-02-23] MEDS ORDERED: PRENATAL VITAMINS W/ FOLIC ACID TABLET (FP) PO SCH (10:00)
[2023-02-23] MEDS ORDERED: MELATONIN 5 MG TABLETS PO SCH (22:00)
[2023-02-23] MEDS ORDERED: THIAMINE HCL 100 MG TABLET (FP) PO SCH (22:00)
== END 2023-02-23 08:58 | disposition left against medical advice (07) | DRG 770 ==
LOC: YASAS 15:35 → Y6N 02-23 02:04
PROVIDERS: ADMIT Allergy & Immunology; ATTEND Surgery
PROC: HZ2ZZZZ Detoxification Services for Substance Abuse Treatment (ICD-10-PCS; principal; 2023-02-22)
DX: F10.230 Alcohol dependence with withdrawal, uncomplicated (principal); F14.20 Cocaine dependence, uncomplicated; F17.210 Nicotine dependence, cigarettes, uncomplicated; I10 Essential (primary) hypertension; E11.9 Type 2 diabetes mellitus without complications; Z79.84 Long term (current) use of oral hypoglycemic drugs; L03.113 Cellulitis of right upper limb; M54.50 Low back pain, unspecified; G89.29 Other chronic pain; R26.89 Other abnormalities of gait and mobility; S91.212A Laceration without foreign body of left great toe with damage to nail, initial encounter; W19.XXXA Unspecified fall, initial encounter; Z91.81 History of falling; Y93.89 Activity, other specified; Y92.89 Other specified places as the place of occurrence of the external cause; Z87.820 Personal history of traumatic brain injury
CPT/HCPCS: 36415; 71101-TC-LT-FY; 73590-TC-RT-FY; 73610-TC-RT-FY; 73630-TC-RT-FY; 80053; 85025; 85651; 86140; 87635; 87811; 93005; 93010; 93971-TC; 99283-25; J0875

== ENCOUNTER 2023-04-24 15:16 | Inpatient (IN) | payer OTHER ==
[2023-04-24 16:49] VITALS: BMI 30.8
[2023-04-24] MEDS ORDERED: BENZOCAINE/MENTHOL (CHLORASEPTIC ) LOZENGE MM PRN (19:32)
[2023-04-24] MEDS ORDERED: BENZONATATE 200 MG CAPSULE PO PRN (19:32)
[2023-04-24] MEDS ORDERED: guaiFENesin 600 MG TABLET.ER (FP) PO PRN (19:32)
[2023-04-24] MEDS ORDERED: ACETAMINOPHEN 325 MG TABLET (FP) PO PRN (19:32)
[2023-04-24] MEDS ORDERED: DICYCLOMINE HCL 10 MG CAPSULE PO PRN (19:32)
[2023-04-24] MEDS ORDERED: LOPERAMIDE HCL 2 MG CAPSULE PO PRN (19:32)
[2023-04-24] MEDS ORDERED: POLYETHYLENE GLYCOL (HEALTHYLAX) 3350 17 GM PACKET PO PRN (19:32)
[2023-04-24] MEDS ORDERED: IBUPROFEN 400 MG TABLET (FP) PO PRN (19:32)
[2023-04-24] MEDS ORDERED: P-EPHED 60MG/TRIPROLIDI 2.5MG TABLET PO PRN (19:32)
[2023-04-24] MEDS ORDERED: ONDANSETRON *ODT* 4 MG TABLET SL PRN (19:32)
[2023-04-24] MEDS ORDERED: MAGNESIUM HYDROX 2400MG/30ML ORAL SUSPENSION 30 ML CUP PO PRN (19:32)
[2023-04-24] MEDS ORDERED: BISMUTH SUBSALICYLATE 524 MG/30 ML PO PRN (19:32)
[2023-04-24] MEDS ORDERED: hydrOXYzine PAMOATE 25 MG CAPSULE (FP) PO PRN (19:32)
[2023-04-24] MEDS ORDERED: MAG HYDROX/AL HYDROX/SIMETH 30 ML UNIT-DOSE CUP PO PRN (19:32)
[2023-04-24] MEDS: MELATONIN 5 MG TABLETS PO SCH (21:50)
[2023-04-24] MEDS: CEPHALEXIN MONOHYDRATE 500 MG CAPSULE (UD) PO SCH (21:51)
[2023-04-24] MEDS: THIAMINE HCL 100 MG TABLET (FP) PO SCH (21:51)
[2023-04-25] MEDS: CEPHALEXIN MONOHYDRATE 500 MG CAPSULE (UD) PO SCH ×2 (10:35→22:30)
[2023-04-25] MEDS: PRENATAL VITAMINS W/ FOLIC ACID TABLET (FP) PO SCH (10:35)
[2023-04-25] MEDS: IBUPROFEN 600 MG TABLET (FP) PO PRN ×2 (10:37→18:12)
[2023-04-25] MEDS ORDERED: chlordiazePOXIDE HCL 25 MG CAPSULE PO PRN (10:38)
[2023-04-25] MEDS: chlordiazePOXIDE HCL 25 MG CAPSULE PO SCH ×3 (11:29→22:31)
[2023-04-25 11:52] LABS: HEMATOCRIT 41.6 % (35.4-49); HEMOGLOBIN 13.4 GM/dL (11.7-16.9); MCH 32.6 pg (25.7-33.7); MCHC 32.2 g/dl (32.0-35.9); MEAN PLT VOLUME 8.9 fl (7.5-11.1); PLATELET COUNT 182 10^3/uL (134-434); RBC 4.12 M/mm3 (4.00-5.60); RDW 14.1 % (11.9-15.9); WHITE BLOOD COUNT 5.4 K/mm3 (4.0-10.0)
[2023-04-25 12:38] LABS: POTASSIUM 3.9 mmol/L (3.5-5.1)
[2023-04-25 13:17] LABS: CALCIUM 8.3 mg/dL (8.5-10.1)
[2023-04-25 13:18] LABS: ALBUMIN 2.9 g/dl (3.4-5.0); BLOOD UREA NITROGEN 11.4 mg/dL (7-18)
[2023-04-25 13:21] LABS: BILIRUBIN,TOTAL 0.7 mg/dL (0.2-1); CREATININE 0.6 mg/dL (0.55-1.3)
[2023-04-25 13:23] LABS: TOT PROT 6.5 g/dl (6.4-8.2)
[2023-04-25] MEDS: THIAMINE HCL 100 MG TABLET (FP) PO SCH (22:30)
[2023-04-25] MEDS: MELATONIN 5 MG TABLETS PO SCH (22:30)
[2023-04-26] MEDS: chlordiazePOXIDE HCL 25 MG CAPSULE PO SCH ×3 (06:00→17:07)
[2023-04-26] MEDS: CEPHALEXIN MONOHYDRATE 500 MG CAPSULE (UD) PO SCH (10:30)
[2023-04-26] MEDS: PRENATAL VITAMINS W/ FOLIC ACID TABLET (FP) PO SCH (10:30)
[2023-04-26] MEDS ORDERED: PRENATAL VITAMINS W/ FOLIC ACID TABLET (FP) PO ONE (13:36)
[2023-04-26] MEDS ORDERED: CEPHALEXIN MONOHYDRATE 500 MG CAPSULE (UD) PO ONE (13:39)
[2023-04-26 16:56] VITALS: BP 118/77; PULSE 69; RESP 16; TEMP 98.5
[2023-04-27] MEDS ORDERED: chlordiazePOXIDE HCL 25 MG CAPSULE PO SCH (05:00)
[2023-04-28] MEDS ORDERED: chlordiazePOXIDE HCL 10 MG CAPSULE PO PRN
[2023-04-28] MEDS ORDERED: chlordiazePOXIDE HCL 10 MG CAPSULE PO SCH (05:00)
[2023-04-29] MEDS ORDERED: chlordiazePOXIDE HCL 10 MG CAPSULE PO SCH (05:00)
[2023-04-30] MEDS ORDERED: chlordiazePOXIDE HCL 10 MG CAPSULE PO ONE (05:00)
== END 2023-04-26 18:00 | disposition left against medical advice (07) | DRG 770 ==
LOC: YASAS 15:16 → Y3N 20:27 → UNDOADMIN 20:27 → UNDODISIN 04-26 18:00
PROVIDERS: ADMIT Allergy & Immunology; ATTEND Surgery
PROC: HZ2ZZZZ Detoxification Services for Substance Abuse Treatment (ICD-10-PCS; principal; 2023-04-24)
DX: F10.230 Alcohol dependence with withdrawal, uncomplicated (principal); F14.20 Cocaine dependence, uncomplicated; F17.210 Nicotine dependence, cigarettes, uncomplicated; I10 Essential (primary) hypertension; E11.9 Type 2 diabetes mellitus without complications; M54.50 Low back pain, unspecified; G89.29 Other chronic pain; Z87.820 Personal history of traumatic brain injury; Z87.2 Personal history of diseases of the skin and subcutaneous tissue
CPT/HCPCS: 36415; 80053; 85027; 86780; 87635

== ENCOUNTER 2023-05-18 11:45 | Inpatient (IN) | payer OTHER ==
[2023-05-18 14:14] VITALS: BMI 26.3
[2023-05-18] MEDS ORDERED: DICYCLOMINE HCL 10 MG CAPSULE PO PRN (14:43)
[2023-05-18] MEDS ORDERED: POLYETHYLENE GLYCOL (HEALTHYLAX) 3350 17 GM PACKET PO PRN (14:43)
[2023-05-18] MEDS ORDERED: NALOXONE HCL (KLOXXADO) 8 MG SPRAY NS PRN (14:43)
[2023-05-18] MEDS ORDERED: IBUPROFEN 400 MG TABLET (FP) PO PRN (14:43)
[2023-05-18] MEDS ORDERED: NALOXONE HCL 0.4 MG/ML VIAL IM PRN (14:43)
[2023-05-18] MEDS ORDERED: BACLOFEN 10 MG TABLET (FP) PO PRN (14:43)
[2023-05-18] MEDS ORDERED: BISMUTH SUBSALICYLATE 524 MG/30 ML PO PRN (14:43)
[2023-05-18] MEDS ORDERED: ONDANSETRON *ODT* 4 MG TABLET SL PRN (14:43)
[2023-05-18] MEDS ORDERED: BENZONATATE 200 MG CAPSULE PO PRN (14:43)
[2023-05-18] MEDS ORDERED: MAGNESIUM HYDROX 2400MG/30ML ORAL SUSPENSION 30 ML CUP PO PRN (14:43)
[2023-05-18] MEDS ORDERED: LOPERAMIDE HCL 2 MG CAPSULE PO PRN (14:43)
[2023-05-18] MEDS ORDERED: guaiFENesin 600 MG TABLET.ER (FP) PO PRN (14:43)
[2023-05-18] MEDS ORDERED: NICOTINE POLACRILEX 2 MG GUM BUC PRN (14:43)
[2023-05-18] MEDS ORDERED: MAG HYDROX/AL HYDROX/SIMETH 30 ML UNIT-DOSE CUP PO PRN (14:43)
[2023-05-18] MEDS ORDERED: BENZOCAINE/MENTHOL (CHLORASEPTIC ) LOZENGE MM PRN (14:43)
[2023-05-18] MEDS ORDERED: ACETAMINOPHEN 325 MG TABLET (FP) PO PRN (14:43)
[2023-05-18] MEDS: IBUPROFEN 600 MG TABLET (FP) PO PRN (20:30)
[2023-05-18] MEDS: THIAMINE HCL 100 MG TABLET (FP) PO SCH (23:12)
[2023-05-18] MEDS: MELATONIN 5 MG TABLETS PO SCH (23:12)
[2023-05-19] MEDS: IBUPROFEN 600 MG TABLET (FP) PO PRN ×2 (07:21→19:08)
[2023-05-19] MEDS ORDERED: LORazepam 1 MG TABLET PO PRN (10:22)
[2023-05-19 10:23] LABS: HEMATOCRIT 37.3 % (35.4-49); MCH 33.3 pg (25.7-33.7); MCHC 34.8 g/dl (32.0-35.9); MEAN CELL VOLUME 95.7 fl (80-96); MEAN PLT VOLUME 8.3 fl (7.5-11.1); PLATELET COUNT 210 10^3/uL (134-434); RBC 3.89 M/mm3 (4.00-5.60); RDW 13.8 % (11.9-15.9); WHITE BLOOD COUNT 4.5 K/mm3 (4.0-10.0)
[2023-05-19] MEDS: PRENATAL VITAMINS W/ FOLIC ACID TABLET (FP) PO SCH (10:31)
[2023-05-19] MEDS: hydrOXYzine PAMOATE 25 MG CAPSULE (FP) PO PRN (10:31)
[2023-05-19 10:44] LABS: POTASSIUM 3.8 mmol/L (3.5-5.1)
[2023-05-19 10:53] LABS: ALBUMIN 2.8 g/dl (3.4-5.0); CREATININE 0.8 mg/dL (0.55-1.3)
[2023-05-19 10:56] LABS: BILIRUBIN,TOTAL 0.3 mg/dL (0.2-1); BLOOD UREA NITROGEN 14.2 mg/dL (7-18); TOT PROT 6.2 g/dl (6.4-8.2)
[2023-05-19 10:58] LABS: CALCIUM 8.5 mg/dL (8.5-10.1)
[2023-05-19] MEDS: LORazepam 2 MG TABLET PO SCH ×3 (10:58→22:13)
[2023-05-19] MEDS: BACITRACIN 0.9 GM PACKET TP SCH (13:54)
[2023-05-19] MEDS: MELATONIN 5 MG TABLETS PO SCH (22:13)
[2023-05-19] MEDS: THIAMINE HCL 100 MG TABLET (FP) PO SCH (22:13)
[2023-05-20] MEDS: LORazepam 2 MG TABLET PO SCH ×2 (04:37→10:30)
[2023-05-20] MEDS: IBUPROFEN 600 MG TABLET (FP) PO PRN (06:25)
[2023-05-20 09:00] VITALS: PULSE 64
[2023-05-20] MEDS: BACITRACIN 0.9 GM PACKET TP SCH (10:29)
[2023-05-20] MEDS: hydrOXYzine PAMOATE 25 MG CAPSULE (FP) PO PRN (10:30)
[2023-05-20] MEDS: PRENATAL VITAMINS W/ FOLIC ACID TABLET (FP) PO SCH (10:30)
[2023-05-20 12:33] VITALS: BP 116/63; RESP 14; TEMP 97.9
[2023-05-21] MEDS ORDERED: LORazepam 1 MG TABLET PO SCH (05:00)
[2023-05-22] MEDS ORDERED: LORazepam 0.5 MG TABLET PO SCH (05:00)
[2023-05-23] MEDS ORDERED: LORazepam 0.5 MG TABLET PO ONE (05:00)
== END 2023-05-20 16:10 | disposition left against medical advice (07) | DRG 770 ==
LOC: YASAS 11:45 → Y6N 15:20
PROVIDERS: ADMIT Allergy & Immunology; ATTEND Surgery
PROC: HZ2ZZZZ Detoxification Services for Substance Abuse Treatment (ICD-10-PCS; principal; 2023-05-18)
DX: F10.230 Alcohol dependence with withdrawal, uncomplicated (principal); F14.20 Cocaine dependence, uncomplicated; F13.20 Sedative, hypnotic or anxiolytic dependence, uncomplicated; F17.213 Nicotine dependence, cigarettes, with withdrawal; I10 Essential (primary) hypertension; E11.9 Type 2 diabetes mellitus without complications; M54.50 Low back pain, unspecified; G89.29 Other chronic pain; Z87.820 Personal history of traumatic brain injury
CPT/HCPCS: 36415; 80053; 85027; 86780; 87635

== ENCOUNTER 2023-06-06 20:33 | Inpatient (IN) | payer OTHER ==
[2023-06-06 21:40] VITALS: BMI 27.7
[2023-06-06] MEDS ORDERED: LOPERAMIDE HCL 2 MG CAPSULE PO PRN (23:19)
[2023-06-06] MEDS ORDERED: MAGNESIUM HYDROX 2400MG/30ML ORAL SUSPENSION 30 ML CUP PO PRN (23:19)
[2023-06-06] MEDS ORDERED: BISMUTH SUBSALICYLATE 524 MG/30 ML PO PRN (23:19)
[2023-06-06] MEDS ORDERED: ACETAMINOPHEN 325 MG TABLET (FP) PO PRN (23:19)
[2023-06-06] MEDS ORDERED: BENZONATATE 200 MG CAPSULE PO PRN (23:19)
[2023-06-06] MEDS ORDERED: DICYCLOMINE HCL 10 MG CAPSULE PO PRN (23:19)
[2023-06-06] MEDS ORDERED: BENZOCAINE/MENTHOL (CHLORASEPTIC ) LOZENGE MM PRN (23:19)
[2023-06-06] MEDS ORDERED: guaiFENesin 600 MG TABLET.ER (FP) PO PRN (23:19)
[2023-06-06] MEDS ORDERED: NICOTINE POLACRILEX 2 MG GUM BUC PRN (23:19)
[2023-06-06] MEDS ORDERED: IBUPROFEN 400 MG TABLET (FP) PO PRN (23:19)
[2023-06-06] MEDS ORDERED: POLYETHYLENE GLYCOL (HEALTHYLAX) 3350 17 GM PACKET PO PRN (23:19)
[2023-06-06] MEDS ORDERED: ONDANSETRON *ODT* 4 MG TABLET SL PRN (23:19)
[2023-06-06] MEDS ORDERED: MAG HYDROX/AL HYDROX/SIMETH 30 ML UNIT-DOSE CUP PO PRN (23:19)
[2023-06-06] MEDS ORDERED: P-EPHED 60MG/TRIPROLIDI 2.5MG TABLET PO PRN (23:19)
[2023-06-07] MEDS ORDERED: levETIRAcetam 500 MG TABLET (FP) PO ONE (00:52)
[2023-06-07] MEDS ORDERED: METHOCARBAMOL 500 MG TABLET ONE (01:15)
[2023-06-07] MEDS: BACITRACIN ZINC 15 GM TUBE TOPICAL OINTMENT TP SCH ×3 (02:24→23:05)
[2023-06-07] MEDS: CEPHALEXIN MONOHYDRATE 500 MG CAPSULE (UD) PO SCH ×3 (02:25→22:30)
[2023-06-07] MEDS: PRENATAL VITAMINS W/ FOLIC ACID TABLET (FP) PO SCH (09:45)
[2023-06-07] MEDS: IBUPROFEN 600 MG TABLET (FP) PO PRN ×2 (09:48→17:24)
[2023-06-07] MEDS ORDERED: diazePAM 5 MG TABLET PO PRN (10:32)
[2023-06-07] MEDS: diazePAM 5 MG TABLET PO SCH ×3 (10:45→22:31)
[2023-06-07 12:15] LABS: HEMATOCRIT 38.3 % (35.4-49); HEMOGLOBIN 12.8 GM/dL (11.7-16.9); MCH 31.8 pg (25.7-33.7); MCHC 33.5 g/dl (32.0-35.9); MEAN CELL VOLUME 95.1 fl (80-96); MEAN PLT VOLUME 7.7 fl (7.5-11.1); PLATELET COUNT 212 10^3/uL (134-434); RBC 4.03 M/mm3 (4.00-5.60); RDW 14.4 % (11.9-15.9); WHITE BLOOD COUNT 4.7 K/mm3 (4.0-10.0)
[2023-06-07 12:33] LABS: CHLORIDE 111 mmol/L (98-107); POTASSIUM 3.9 mmol/L (3.5-5.1); SODIUM 143 mmol/L (136-145)
[2023-06-07 12:51] LABS: ALBUMIN 2.9 g/dl (3.4-5.0); ANION GAP 4 mmol/L (4-13); BLOOD UREA NITROGEN 15.6 mg/dL (7-18); CALCIUM 8.2 mg/dL (8.5-10.1); CO2 28 mmol/L (21-32); GLUCOSE,RANDOM 81 mg/dL (74-106)
[2023-06-07 12:53] LABS: CREATININE 0.8 mg/dL (0.55-1.3)
[2023-06-07 12:54] LABS: SGOT/AST 28 U/L (15-37); SGPT/ALT 28 U/L (13-61)
[2023-06-07 12:55] LABS: BILIRUBIN,TOTAL 0.2 mg/dL (0.2-1); TOT PROT 6.2 g/dl (6.4-8.2)
[2023-06-07 12:59] LABS: ALK PHOS 80 U/L (45-117)
[2023-06-07] MEDS: THIAMINE HCL 100 MG TABLET (FP) PO SCH (22:30)
[2023-06-07] MEDS: hydrOXYzine PAMOATE 25 MG CAPSULE (FP) PO PRN (22:30)
[2023-06-07] MEDS: MELATONIN 5 MG TABLETS PO SCH (22:30)
[2023-06-08] MEDS: diazePAM 5 MG TABLET PO SCH ×4 (05:38→22:26)
[2023-06-08] MEDS: BACITRACIN ZINC 15 GM TUBE TOPICAL OINTMENT TP SCH ×2 (10:26→22:24)
[2023-06-08] MEDS: CEPHALEXIN MONOHYDRATE 500 MG CAPSULE (UD) PO SCH ×2 (10:26→22:26)
[2023-06-08] MEDS: PRENATAL VITAMINS W/ FOLIC ACID TABLET (FP) PO SCH (10:26)
[2023-06-08] MEDS: IBUPROFEN 600 MG TABLET (FP) PO PRN (10:27)
[2023-06-08] MEDS ORDERED: LIDOCAINE 5% TOPICAL PATCH TP ONE (19:51)
[2023-06-08] MEDS ORDERED: METHOCARBAMOL 750 MG TABLET PO SCH (20:00)
[2023-06-08] MEDS ORDERED: LIDOCAINE 5% TOPICAL PATCH TP SCH (20:00)
[2023-06-08] MEDS: MELATONIN 5 MG TABLETS PO SCH (22:25)
[2023-06-08] MEDS: METHOCARBAMOL 500 MG TABLET PO SCH (22:25)
[2023-06-08] MEDS: THIAMINE HCL 100 MG TABLET (FP) PO SCH (22:25)
[2023-06-08] MEDS: hydrOXYzine PAMOATE 25 MG CAPSULE (FP) PO PRN (22:26)
[2023-06-09] MEDS: diazePAM 5 MG TABLET PO SCH ×2 (05:48→14:18)
[2023-06-09] MEDS: METHOCARBAMOL 500 MG TABLET PO SCH ×2 (05:49→14:17)
[2023-06-09 06:48] VITALS: RESP 16
[2023-06-09] MEDS ORDERED: LIDOCAINE PATCH REMOVAL MC SCH (08:00)
[2023-06-09] MEDS ORDERED: BACITRACIN 0.9 GM PACKET TP SCH (10:00)
[2023-06-09] MEDS: CEPHALEXIN MONOHYDRATE 500 MG CAPSULE (UD) PO SCH (10:29)
[2023-06-09] MEDS: PRENATAL VITAMINS W/ FOLIC ACID TABLET (FP) PO SCH (10:29)
[2023-06-09 20:53] VITALS: BP 136/78; PULSE 72; TEMP 97.5
[2023-06-10] MEDS ORDERED: diazePAM 5 MG TABLET PO SCH (06:00)
[2023-06-11] MEDS ORDERED: diazePAM 5 MG TABLET PO ONE (06:00)
== END 2023-06-09 20:31 | disposition left against medical advice (07) | DRG 770 ==
LOC: YASAS 20:33 → Y3N 06-07 01:04 → UNDOADMIN 06-07 01:04 → Y3N 06-07 02:59 → UNDODISIN 06-09 20:31
PROVIDERS: ADMIT Allergy & Immunology; ATTEND Allergy & Immunology
PROC: HZ2ZZZZ Detoxification Services for Substance Abuse Treatment (ICD-10-PCS; principal; 2023-06-07)
DX: F10.230 Alcohol dependence with withdrawal, uncomplicated (principal); F14.20 Cocaine dependence, uncomplicated; F17.210 Nicotine dependence, cigarettes, uncomplicated; I10 Essential (primary) hypertension; E11.9 Type 2 diabetes mellitus without complications; M54.50 Low back pain, unspecified; G89.29 Other chronic pain; Z91.81 History of falling; Z87.820 Personal history of traumatic brain injury
CPT/HCPCS: 36415; 80053; 80307; 85027; 86780; 87635; 87811

== ENCOUNTER 2023-07-05 10:03 | Inpatient (IN) | payer OTHER ==
[2023-07-05 11:27] VITALS: BMI 27.6
[2023-07-05] MEDS ORDERED: MAGNESIUM HYDROX 2400MG/30ML ORAL SUSPENSION 30 ML CUP PO PRN (14:07)
[2023-07-05] MEDS ORDERED: NALOXONE HCL 0.4 MG/ML VIAL IM PRN (14:07)
[2023-07-05] MEDS ORDERED: POLYETHYLENE GLYCOL (HEALTHYLAX) 3350 17 GM PACKET PO PRN (14:07)
[2023-07-05] MEDS ORDERED: ACETAMINOPHEN 325 MG TABLET (FP) PO PRN (14:07)
[2023-07-05] MEDS ORDERED: BISMUTH SUBSALICYLATE 524 MG/30 ML PO PRN (14:07)
[2023-07-05] MEDS ORDERED: BENZONATATE 200 MG CAPSULE PO PRN (14:07)
[2023-07-05] MEDS ORDERED: NALOXONE HCL (KLOXXADO) 8 MG SPRAY NS PRN (14:07)
[2023-07-05] MEDS ORDERED: ONDANSETRON *ODT* 4 MG TABLET SL PRN (14:07)
[2023-07-05] MEDS ORDERED: MAG HYDROX/AL HYDROX/SIMETH 30 ML UNIT-DOSE CUP PO PRN (14:07)
[2023-07-05] MEDS ORDERED: hydrOXYzine PAMOATE 25 MG CAPSULE (FP) PO PRN (14:07)
[2023-07-05] MEDS ORDERED: IBUPROFEN 600 MG TABLET (FP) PO PRN (14:07)
[2023-07-05] MEDS ORDERED: guaiFENesin 600 MG TABLET.ER (FP) PO PRN (14:07)
[2023-07-05] MEDS ORDERED: BENZOCAINE/MENTHOL (CHLORASEPTIC ) LOZENGE MM PRN (14:07)
[2023-07-05] MEDS ORDERED: DICYCLOMINE HCL 10 MG CAPSULE PO PRN (14:07)
[2023-07-05] MEDS ORDERED: chlordiazePOXIDE HCL 25 MG CAPSULE PO PRN (14:07)
[2023-07-05] MEDS ORDERED: IBUPROFEN 400 MG TABLET (FP) PO PRN (14:07)
[2023-07-05] MEDS ORDERED: LOPERAMIDE HCL 2 MG CAPSULE PO PRN (14:07)
[2023-07-05] MEDS ORDERED: METHOCARBAMOL 500 MG TABLET PO PRN (14:07)
[2023-07-05] MEDS ORDERED: PATIENT'S OWN MEDICATION (NON-FORMULARY) (Lisinopril/Hydrochlorothiazide [Lisinopril-Hctz PO SCH (14:30)
[2023-07-05] MEDS ORDERED: ALBUTEROL SO4 HFA INHALER IH PRN (15:21)
[2023-07-05] MEDS: HYDROCHLOROTHIAZIDE 12.5 MG CAPSULE (FP) PO SCH (15:50)
[2023-07-05] MEDS: LISINOPRIL 10 MG TABLET PO SCH (15:50)
[2023-07-05] MEDS: chlordiazePOXIDE HCL 25 MG CAPSULE PO SCH ×2 (17:06→22:48)
[2023-07-05] MEDS: THIAMINE HCL 100 MG TABLET (FP) PO SCH (22:47)
[2023-07-05] MEDS: MELATONIN 5 MG TABLETS PO SCH (22:47)
[2023-07-05] MEDS: PANTOPRAZOLE 20 MG TABLET PO SCH (22:48)
[2023-07-05] MEDS: AMMONIUM LACTATE 12% LOTION 225 GM BOTTLE TP SCH (23:28)
[2023-07-06] MEDS: chlordiazePOXIDE HCL 25 MG CAPSULE PO SCH ×4 (05:40→22:48)
[2023-07-06] MEDS ORDERED: PRENATAL VITAMINS W/ FOLIC ACID TABLET (FP) PO SCH (10:00)
[2023-07-06] MEDS: PANTOPRAZOLE 20 MG TABLET PO SCH (10:26)
[2023-07-06] MEDS: AMMONIUM LACTATE 12% LOTION 225 GM BOTTLE TP SCH ×2 (10:26→22:47)
[2023-07-06] MEDS: HYDROCHLOROTHIAZIDE 12.5 MG CAPSULE (FP) PO SCH (10:26)
[2023-07-06] MEDS: LISINOPRIL 10 MG TABLET PO SCH (10:26)
[2023-07-06 17:12] VITALS: RESP 18
[2023-07-06] MEDS: MELATONIN 5 MG TABLETS PO SCH (22:47)
[2023-07-06] MEDS: THIAMINE HCL 100 MG TABLET (FP) PO SCH (22:47)
[2023-07-07] MEDS ORDERED: ALBUTEROL SO4 HFA INHALER IH PRN (00:32)
[2023-07-07] MEDS ORDERED: chlordiazePOXIDE HCL 25 MG CAPSULE PO SCH (05:00)
[2023-07-07 07:19] VITALS: BP 115/60; PULSE 63; TEMP 98.2
[2023-07-07] MEDS ORDERED: ERGOCALCIFEROL (VIT D2) 50,000 UNIT (1.25 MG) CAPSULE PO SCH (10:00)
[2023-07-08] MEDS ORDERED: chlordiazePOXIDE HCL 10 MG CAPSULE PO PRN
[2023-07-08] MEDS ORDERED: chlordiazePOXIDE HCL 10 MG CAPSULE PO SCH (05:00)
[2023-07-09] MEDS ORDERED: chlordiazePOXIDE HCL 10 MG CAPSULE PO SCH (05:00)
[2023-07-10] MEDS ORDERED: chlordiazePOXIDE HCL 10 MG CAPSULE PO ONE (05:00)
== END 2023-07-07 06:28 | disposition left against medical advice (07) | DRG 770 ==
LOC: YASAS 10:03 → Y3N 14:57
PROVIDERS: ADMIT Allergy & Immunology; ATTEND Surgery
PROC: HZ2ZZZZ Detoxification Services for Substance Abuse Treatment (ICD-10-PCS; principal; 2023-07-05)
DX: F10.230 Alcohol dependence with withdrawal, uncomplicated (principal); F17.210 Nicotine dependence, cigarettes, uncomplicated; F41.9 Anxiety disorder, unspecified; F32.A Depression, unspecified; I10 Essential (primary) hypertension; I87.2 Venous insufficiency (chronic) (peripheral); J45.909 Unspecified asthma, uncomplicated; E11.9 Type 2 diabetes mellitus without complications
CPT/HCPCS: 82962; 87635; 87811

== ENCOUNTER 2023-11-15 01:24 | Emergency (ER) | payer OTHER ==
[2023-11-15 01:37] VITALS: BMI 25.8
[2023-11-15] MEDS: ACETAMINOPHEN 1000 MG/100 ML BAG IVPB ONE (03:05)
[2023-11-15] MEDS ORDERED: ACETAMINOPHEN INJECTION 100 ML IVPB ONE (03:21)
[2023-11-15 03:37] LABS: BASO % 0.5 % (0-2.0); EOS % 2.1 % (0-4.5); HEMOGLOBIN 13.1 GM/dL (11.7-16.9); LYMPH % 17.4 % (8-40); MCH 31.9 pg (25.7-33.7); MCHC 33.5 g/dl (32.0-35.9); MEAN PLT VOLUME 7.5 fl (7.5-11.1); MONO % 13.2 % (3.8-10.2); NEUT % 66.8 % (42.8-82.8); PLATELET COUNT 234 10^3/uL (134-434); RDW 14.5 % (11.9-15.9); WHITE BLOOD COUNT 5.9 K/mm3 (4.0-10.0)
[2023-11-15 03:55] LABS: POTASSIUM 3.6 mmol/L (3.5-5.1)
[2023-11-15 03:57] LABS: ALBUMIN 3.4 g/dl (3.4-5.0); CALCIUM 8.7 mg/dL (8.5-10.1)
[2023-11-15 03:58] LABS: BLOOD UREA NITROGEN 14.9 mg/dL (7-18)
[2023-11-15 04:01] LABS: CREATININE 0.9 mg/dL (0.55-1.3)
[2023-11-15 04:02] LABS: BILIRUBIN,TOTAL 0.3 mg/dL (0.2-1)
[2023-11-15] MEDS: CLINDAMYCIN 600MG PREMIX IVPB 600 MG/50 ML BAG IVPB ONE (04:44)
[2023-11-15] MEDS ORDERED: CLINDAMYCIN 600MG PREMIX IVPB 600 MG/50 ML BAG IVPB ONE (04:46)
[2023-11-15 07:24] VITALS: BP 167/78; PULSE 63; RESP 16; TEMP 98.1
== END 2023-11-15 09:15 | disposition home or self-care (01) ==
LOC: JER 01:24
PROC: 3E03329 Introduction of Other Anti-infective into Peripheral Vein, Percutaneous Approach (ICD-10-PCS; principal; 2023-11-15)
PROC: 3E033NZ Introduction of Analgesics, Hypnotics, Sedatives into Peripheral Vein, Percutaneous Approach (ICD-10-PCS; 2023-11-15)
DX: L02.01 Cutaneous abscess of face (principal); S02.66XB Fracture of symphysis of mandible, initial encounter for open fracture; X58.XXXA Exposure to other specified factors, initial encounter; Z20.822 Contact with and (suspected) exposure to COVID-19
CPT/HCPCS: 0241U-QW; 36415; 70487-TC; 80053; 85025; 99285-25; J0131; Q9967

== ENCOUNTER 2023-11-19 13:05 | Inpatient (IN) | payer OTHER ==
[2023-11-19 14:05] VITALS: BMI 25.0
[2023-11-19] MEDS ORDERED: NALOXONE HCL (KLOXXADO) 8 MG SPRAY NS PRN (15:34)
[2023-11-19] MEDS ORDERED: ACETAMINOPHEN 325 MG TABLET (FP) PO PRN (15:34)
[2023-11-19] MEDS ORDERED: BENZOCAINE/MENTHOL (CHLORASEPTIC ) LOZENGE MM PRN (15:34)
[2023-11-19] MEDS ORDERED: BISMUTH SUBSALICYLATE 524 MG/30 ML PO PRN (15:34)
[2023-11-19] MEDS ORDERED: POLYETHYLENE GLYCOL (HEALTHYLAX) 3350 17 GM PACKET PO PRN (15:34)
[2023-11-19] MEDS ORDERED: DICYCLOMINE HCL 10 MG CAPSULE PO PRN (15:34)
[2023-11-19] MEDS ORDERED: BENZONATATE 200 MG CAPSULE PO PRN (15:34)
[2023-11-19] MEDS ORDERED: IBUPROFEN 400 MG TABLET (FP) PO PRN (15:34)
[2023-11-19] MEDS ORDERED: MAG HYDROX/AL HYDROX/SIMETH 30 ML UNIT-DOSE CUP PO PRN (15:34)
[2023-11-19] MEDS ORDERED: guaiFENesin 600 MG TABLET.ER (FP) PO PRN (15:34)
[2023-11-19] MEDS ORDERED: NALOXONE HCL 0.4 MG/ML VIAL IM PRN (15:34)
[2023-11-19] MEDS ORDERED: LOPERAMIDE HCL 2 MG CAPSULE PO PRN (15:34)
[2023-11-19] MEDS ORDERED: chlordiazePOXIDE HCL 25 MG CAPSULE PO PRN (15:34)
[2023-11-19] MEDS ORDERED: ONDANSETRON *ODT* 4 MG TABLET SL PRN (15:34)
[2023-11-19] MEDS ORDERED: MAGNESIUM HYDROX 2400MG/30ML ORAL SUSPENSION 30 ML CUP PO PRN (15:34)
[2023-11-19] MEDS: METHOCARBAMOL 500 MG TABLET PO PRN (17:26)
[2023-11-19] MEDS: chlordiazePOXIDE HCL 25 MG CAPSULE PO SCH (17:26)
[2023-11-19] MEDS: hydrOXYzine PAMOATE 25 MG CAPSULE (FP) PO PRN (17:26)
[2023-11-19] MEDS: BACITRACIN 0.9 GM PACKET TP SCH (22:45)
[2023-11-19] MEDS: MELATONIN 5 MG TABLETS PO SCH (22:45)
[2023-11-19] MEDS: THIAMINE HCL 100 MG TABLET (FP) PO SCH (22:45)
[2023-11-19] MEDS: SULFAMETHOXAZOLE/TRIMETHOPRIM 800MG/160MG D.S. TABLET PO SCH (22:45)
[2023-11-19] MEDS: IBUPROFEN 600 MG TABLET (FP) PO PRN (23:06)
[2023-11-20 05:53] VITALS: RESP 16
[2023-11-20] MEDS ORDERED: PATIENT'S OWN MEDICATION (NON-FORMULARY) (Lisinopril/Hydrochlorothiazide [Lisinopril-Hctz PO SCH (10:00)
[2023-11-20] MEDS: HYDROCHLOROTHIAZIDE 12.5 MG CAPSULE (FP) PO SCH (10:44)
[2023-11-20] MEDS: PRENATAL VITAMINS W/ FOLIC ACID TABLET (FP) PO SCH (10:44)
[2023-11-20] MEDS: LISINOPRIL 10 MG TABLET PO SCH (10:45)
[2023-11-20 13:17] VITALS: BP 105/68; PULSE 64; TEMP 98
[2023-11-21] MEDS ORDERED: chlordiazePOXIDE HCL 25 MG CAPSULE PO SCH (05:00)
[2023-11-22] MEDS ORDERED: chlordiazePOXIDE HCL 10 MG CAPSULE PO PRN
[2023-11-22] MEDS ORDERED: chlordiazePOXIDE HCL 10 MG CAPSULE PO SCH (05:00)
[2023-11-23] MEDS ORDERED: chlordiazePOXIDE HCL 10 MG CAPSULE PO SCH (05:00)
[2023-11-24] MEDS ORDERED: chlordiazePOXIDE HCL 10 MG CAPSULE PO ONE (05:00)
== END 2023-11-20 13:50 | disposition home or self-care (01) | DRG 774 ==
LOC: YASAS 13:05 → Y6N 16:00
PROVIDERS: ADMIT Allergy & Immunology; ATTEND Surgery
PROC: HZ2ZZZZ Detoxification Services for Substance Abuse Treatment (ICD-10-PCS; principal; 2023-11-19)
DX: F10.230 Alcohol dependence with withdrawal, uncomplicated (principal); F14.20 Cocaine dependence, uncomplicated; F17.210 Nicotine dependence, cigarettes, uncomplicated; F20.9 Schizophrenia, unspecified; F31.9 Bipolar disorder, unspecified; I10 Essential (primary) hypertension; R73.03 Prediabetes
CPT/HCPCS: 80305; 82962; 93005; 93010